=== PATIENT | male | born 1945 | race African-American/Black ===

== ENCOUNTER 2017-03-08 14:28 | Outpatient (CLI) | payer MEDICARE ==
--- NOTE | 2017-03-08 15:25 | XRay Report ---
CHEST 2 VIEWS INDICATION: End-stage renal disease. COMPARISON: 12/02/2011 CXR report; images not retrievable at this time. FINDINGS: PA and lateral chest radiographs demonstrate mild cardiomegaly. Extensive aortic atherosclerotic calcifications. Clear lungs. Right AICD with dual-chamber leads. Demineralized bones. CONCLUSION: Cardiomegaly and pacemaker without acute chest process, as described. Thank you for the opportunity to participate in this patient's care.
== END 2017-03-08 14:29 | disposition home or self-care (01) ==
LOC: XRAY 14:28
DX: I51.7 Cardiomegaly (principal); Z95.0 Presence of cardiac pacemaker; I25.10 Atherosclerotic heart disease of native coronary artery without angina pectoris; N18.6 End stage renal disease; I48.91 Unspecified atrial fibrillation
CPT/HCPCS: 71020

== ENCOUNTER 2017-04-01 10:50 | Inpatient (IN) | payer MEDICARE ==
[2017-04-01 12:37] LABS: Basophils % (Auto) 1.3 % (0.0-1.8); Eosinophils % (Auto) 13.5 % (0.0-4.3); Hematocrit 37.4 % (35.5-45.6); Hemoglobin 12.3 gm/dl (11.8-15.2); Mean Corpuscular HGB Conc 33 % (32-34); Mean Corpuscular Hemoglobin 33 pg (28-32); Mean Corpuscular Volume 101 fl (84-94); Platelet Count 135 K/mm3 (140-440); Red Blood Count 3.69 M/mm3 (3.65-5.03); Red Cell Distribution Width 13.9 % (13.2-15.2); White Blood Count 5.7 K/mm3 (4.5-11.0)
[2017-04-01 12:46] LABS: INR 0.95 (0.87-1.13)
[2017-04-01 12:47] LABS: Partial Thromboplastin Time 32.8 Sec. (24.2-36.6)
[2017-04-01 12:53] LABS: Albumin 3.9 g/dL (3.9-5); BUN/Creatinine Ratio 4.81; Bilirubin,Total 0.4 mg/dL (0.1-1.2); Calcium 8.4 mg/dL (8.4-10.2); Chloride 97.5 mmol/L (98-107); Potassium 4.3 mmol/L (3.6-5.0); Total Protein 7.8 g/dL (6.3-8.2)
--- NOTE | 2017-04-01 14:31 | Emergency Department Report ---
ED Upper Extremity Inj HPI - General Chief Complaint: Extremity Injury, Upper Stated Complaint: FISTULA PROBLEM/BLEEDING Time Seen by Provider: 04/01/17 14:21 Source: patient, family Mode of arrival: Ambulatory Limitations: Language Barrier - History of Present Illness Initial Comments: 71-year-old male here with a bleeding dialysis access. Patient had pulsatile flow from his dialysis access at home according to family. He went to dialysis and was immediately sent here from dialysis as they were unable to stop the bleeding according to dialysis. On arrival here there is no active bleeding from the site there is a small ulcer on his left upper arm. He denies lightheadedness dizziness Complaint: Injury to:: left -: Sudden Other Extremity Injury: Arm: Left Other Injuries: none Improves With: none Worsens With: none Associated Symptoms: denies: weakness, numbness, neck pain, suspects foreign body, nausea/vomiting - Related Data Home Medications Medication Instructions Recorded Confirmed Last Taken Atorvastatin Calcium [Lipitor] 20 mg PO QHS 06/13/13 12/10/15 12/09/15 20mg Calcium Acetate 667 mg PO TIDAC 06/13/13 12/10/15 12/09/15 667mg Carvedilol 3.125 mg PO BID 06/13/13 12/10/15 12/09/15 3.125mg Esomeprazole Magnesium [NexIUM] 40 mg PO DAILY 06/13/13 12/10/15 12/09/15 40mg Sevelamer Carbonate [Renvela] 800 mg PO BID 06/13/13 12/10/15 12/09/15 800mg Terazosin [Hytrin] 10 mg PO QHS 06/13/13 12/10/15 12/09/15 10mg Vit B Cplx #11/FA/C/Biot/Zn Ox 1 each PO DAILY 06/13/13 12/10/15 12/09/15 [Dialyvite with Zinc Tablet] 1 tab Sodium Polystyrene Sulfonate [Sps] 15 ml PO 4XW 12/10/15 12/10/15 12/09/15 15ml Allergies Allergy/AdvReac Type Severity Reaction Status Date / Time cefazolin sodium [From Ancef] AdvReac Severe Shortness Unverified 12/10/15 19:52 of Breath ED Review of Systems ROS: Stated complaint: FISTULA PROBLEM/BLEEDING Other details as noted in HPI Constitutional: denies: chills, fever, malaise Eyes: denies: eye pain Respiratory: denies: cough, orthopnea Cardiovascular: denies: chest pain, palpitations Gastrointestinal: denies: abdominal pain, nausea Musculoskeletal: denies: back pain Neurological: denies: headache, weakness ED Past Medical Hx - Past Medical History Previous Medical History?: Yes Hx Hypertension: Yes Hx Renal Disease: Yes - Surgical History Past Surgical History?: Yes Hx Pacemaker: Yes Hx Internal Defibrillator: Yes - Social History Smoking Status: Never Smoker Substance Use Type: None - Medications Home Medications: Home Medications Medication Instructions Recorded Confirmed Last Taken Type Atorvastatin Calcium [Lipitor] 20 mg PO QHS 06/13/13 12/10/15 12/09/15 History 20mg Calcium Acetate 667 mg PO TIDAC 06/13/13 12/10/15 12/09/15 History 667mg Carvedilol 3.125 mg PO BID 06/13/13 12/10/15 12/09/15 History 3.125mg Esomeprazole Magnesium [NexIUM] 40 mg PO DAILY 06/13/13 12/10/15 12/09/15 History 40mg Sevelamer Carbonate [Renvela] 800 mg PO BID 06/13/13 12/10/15 12/09/15 History 800mg Terazosin [Hytrin] 10 mg PO QHS 06/13/13 12/10/15 12/09/15 History 10mg Vit B Cplx #11/FA/C/Biot/Zn Ox 1 each PO DAILY 06/13/13 12/10/15 12/09/15 History [Dialyvite with Zinc Tablet] 1 tab Sodium Polystyrene Sulfonate [Sps] 15 ml PO 4XW 12/10/15 12/10/15 12/09/15 History 15ml ED Physical Exam - General Limitations: Language Barrier - Eye Eye exam: Present: normal appearance. Absent: PERRL, EOMI - Respiratory Respiratory exam: Present: normal lung sounds bilaterally. Absent: respiratory distress - Cardiovascular Cardiovascular Exam: Present: regular rate, normal rhythm - GI/Abdominal GI/Abdominal exam: Present: soft - Expanded Upper Extremity Exam Left Upper Arm exam: Present: other (palpable thrill in left fistula, small half millimeter ulcer in the arm no active bleeding) Vascular: Absent: vascular compromise ED Course Vital Signs 04/01/17 04/01/17 04/01/17 11:56 14:10 14:20 Temperature 98.7 F Pulse Rate 80 Respiratory 18 Rate Blood Pressure 156/90 171/87 O2 Sat by Pulse 100 Oximetry ED Medical Decision Making - Lab Data Result diagrams: 04/01/17 12:10 04/01/17 12:10 Laboratory Results - last 24 hr 04/01/17 04/01/17 04/01/17 12:10 12:10 12:10 WBC 5.7 RBC 3.69 Hgb 12.3 Hct 37.4 MCV 101 H MCH 33 H MCHC 33 RDW 13.9 Plt Count 135 L Lymph % (Auto) 18.4 [place] % (Auto) 8.5 H Eos % (Auto) 13.5 H Baso % (Auto) 1.3 Lymph # 1.0 L [place] # 0.5 Eos # 0.8 H Baso # 0.1 Seg Neutrophils % 58.3 Seg Neutrophils # 3.3 PT 13.1 INR 0.95 APTT 32.8 Sodium 141 Potassium 4.3 Chloride 97.5 L Carbon Dioxide 28 Anion Gap 20 BUN 39 H Creatinine 8.1 H Estimated GFR 7 BUN/Creatinine Ratio 4.81 Glucose 83 Calcium 8.4 Total Bilirubin 0.40 AST 23 ALT 14 Alkaline Phosphatase 121 Total Protein 7.8 Albumin 3.9 Albumin/Globulin Ratio 1.0 Blood Type Antibody Screen JOSE ALFREDO Antibody Screen 04/01/17 12:10 WBC RBC Hgb Hct MCV MCH MCHC RDW Plt Count Lymph % (Auto) [place] % (Auto) Eos % (Auto) Baso % (Auto) Lymph # [place] # Eos # Baso # Seg Neutrophils % Seg Neutrophils # PT INR APTT Sodium Potassium Chloride Carbon Dioxide Anion Gap BUN Creatinine Estimated GFR BUN/Creatinine Ratio Glucose Calcium Total Bilirubin AST ALT Alkaline Phosphatase Total Protein Albumin Albumin/Globulin Ratio Blood Type O POSITIVE Antibody Screen TNR JOSE ALFREDO Antibody Screen Negative - Medical Decision Making 71-year-old male with a bleeding dialysis access here for evaluation. Vascular surgery present on my evaluation and plan state patient for a fistulogram. After this the patient will be admitted to the hospital service for dialysis as he has not had his dialysis. No hyperkalemia or evidence of volume overload. Portions of this chart were dictated with dictation software. There may be dictation errors contained within this note. Critical care attestation.: If time is entered above; I have spent that time in minutes in the direct care of this critically ill patient, excluding procedure time. ED Disposition Clinical Impression: Dialysis AV fistula malfunction, Bleeding from dialysis shunt Disposition: OP ADMIT IP TO THIS HOSP Is pt being admited?: Yes Condition: Stable
--- NOTE | 2017-04-01 14:35 | History and Physical Report ---
History of Present Illness Chief complaint: Im bleeding History of present illness: 71 YO Male with ESRD on HD, HTN, Malnutrition presents to ED for evaluation. 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 As per patient, thru composer teaching artist- Pt went to dialysis today and was found to have uncontrolled bleeding from his AVF. Pt was sent from dialysis to [facility] ED for evaluation. Pt seen and evaluted in ED and found to have uncontrollable bleeding from his AV Fistula. IR consulted in ED and patient taken urgently to OR for fistulagram. Pt denies fever, chills, CP, Palpitations, NVD, Syncope, Vertigo, BRBPR, Productive cough, difficulty breathing, or recent ill contacts. Past History Past Medical History: ESRD, hypertension, other (Malnutrition) Past Surgical History: Other (AV Fistula) Social history: , lives with family. denies: smoking, alcohol abuse, prescription drug abuse, IV drug use Family history: hypertension Medications and Allergies Allergies Allergy/AdvReac Type Severity Reaction Status Date / Time cefazolin sodium [From Anc] AdvReac Severe Shortness Unverified 12/10/15 19:52 of Breath Home Medications Medication Instructions Recorded Confirmed Last Taken Type Atorvastatin Calcium [Lipitor] 20 mg PO QHS 06/13/13 12/10/15 12/09/15 History 20mg Calcium Acetate 667 mg PO TIDAC 06/13/13 12/10/15 12/09/15 History 667mg Carvedilol 3.125 mg PO BID 06/13/13 12/10/15 12/09/15 History 3.125mg Esomeprazole Magnesium [NexIUM] 40 mg PO DAILY 06/13/13 12/10/15 12/09/15 History 40mg Sevelamer Carbonate [Renvela] 800 mg PO BID 06/13/13 12/10/15 12/09/15 History 800mg Terazosin [Hytrin] 10 mg PO QHS 06/13/13 12/10/15 12/09/15 History 10mg Vit B Cplx #11/FA/C/Biot/Zn Ox 1 each PO DAILY 06/13/13 12/10/15 12/09/15 History [Dialyvite with Zinc Tablet] 1 tab Sodium Polystyrene Sulfonate [Sps] 15 ml PO 4XW 12/10/15 12/10/15 12/09/15 History 15ml Review of Systems All systems: negative Constitutional: other (bleeding) Exam - Constitutional Vitals: Temp Pulse Resp BP Pulse Ox 98.7 F 80 18 171/87 100 04/01/17 11:56 04/01/17 11:56 04/01/17 14:20 04/01/17 14:10 04/01/17 14:20 General appearance: Present: mild distress - EENT Eyes: Present: PERRL ENT: hearing intact, clear oral mucosa - Neck Neck: Present: supple, normal ROM - Respiratory Respiratory effort: normal Respiratory: bilateral: CTA - Cardiovascular Heart Sounds: Present: S1 & S2. Absent: rub, click - Extremities Extremities: pulses symmetrical, No edema Extremity abnormal: other (bleeding from RUE AVF) Peripheral Pulses: within normal limits - Abdominal General gastrointestinal: Present: soft, non-tender, non-distended, normal bowel sounds Male genitourinary: Present: normal - Integumentary Integumentary: Present: clear, warm, dry - Musculoskeletal Musculoskeletal: gait normal, strength equal bilaterally - Psychiatric Psychiatric: appropriate mood/affect, intact judgment & insight - Neurologic Neurologic: CNII-XII intact, moves all extremities Results - Labs CBC & Chem 7: 04/01/17 12:10 04/01/17 12:10 Labs: Abnormal lab results 04/01/17 04/01/17 Range/Units 12:10 12:10 MCV 101 H (84-94) fl MCH 33 H (28-32) pg Plt Count 135 L (140-440) K/mm3 [place] % (Auto) 8.5 H (0.0-7.3) % Eos % (Auto) 13.5 H (0.0-4.3) % Lymph # 1.0 L (1.2-5.4) K/mm3 Eos # 0.8 H (0.0-0.4) K/mm3 Chloride 97.5 L (98-107) mmol/L BUN 39 H (9-20) mg/dL Creatinine 8.1 H (0.8-1.5) mg/dL Assessment and Plan - Patient Problems (1) ESRD (end stage renal disease) Current Visit: No Status: Chronic Plan to address problem: Nephrology consulted in ED, dialysis as per renal service (2) Hypotension Current Visit: No Status: Acute Qualifiers: Hypotension type: H Trimester: T Plan to address problem: monitor bp q shift, (3) Paroxysmal atrial fibrillation Current Visit: No Status: Acute Plan to address problem: Rate controlled, NSR (4) Dialysis AV fistula malfunction Current Visit: Yes Status: Acute Qualifiers: Encounter type: E Plan to address problem: IR/Vascular consulted. Pt taken to OR urgently for fistulagram. (5) DVT prophylaxis Current Visit: Yes Status: Acute
[2017-04-01] MEDS ORDERED: DUONEB *Not for PRN Use IH (14:36)
[2017-04-01] MEDS ORDERED: TYLENOL PO PRN (14:36)
--- NOTE | 2017-04-01 14:39 | Admit Criteria Form ---
Admission Criteria Documentation: VASCULAR DISEASE GRG Clinical Indications for Admission to Inpatient Care (Place 'X' for any and all applicable criteria): Hospital admission is needed for appropriate care of the patient because of ANY ONE of the following (1)(2)(3)(4): [ ]I. Life-threatening or limb-threatening skin ulcer as indicated by ANY ONE of the following(5): [ ]a) Surrounding cellulitis unresponsive to outpatient treatment [ ]b) Wet gangrene [ ]c) Lymphangitis [ ]d) Bacteremia [ ]II. Gangrene requiring intensity and frequency of care not manageable to outpatient, emergency, or observation level of care(5) [ ]III. Severe pain requiring acute inpatient management [ ]IV. Interventional revascularization (eg, surgery, thrombolysis) needed (eg , critical limb ischemia)(21) [ ]V. Urgent inpatient IV anticoagulation needed due to ALL of the following: [ ]a) Temporary subtherapeutic anticoagulation unacceptable because of high risk of short-term venous or arterial thromboembolism due to ANY ONE of the following(7)(8)(9): [ ]i) Venous thromboembolism within the past 12 months [ ]ii) Underlying malignancy [ ]iii) Patient with mechanical cardiac valve(10)(11) [ ]iv) Underlying hypercoagulable state (eg, protein C or protein S deficiency, antithrombin deficiency, antiphospholipid antibodies) [ ]v) Patient at high risk of thromboembolism (eg, status post orthopedic surgery, history of recurrent venous thromboembolism) [ ]vi) Atrial fibrillation with rheumatic valvular heart disease [ ]vii) Atrial fibrillation with 3 or MORE of the following : [ ]1) Congestive heart failure [ ]2) Hypertension [ ]3) Age 65 years or older [ ]4) Diabetes mellitus [ ]5) History of thromboembolism (eg, stroke, TIA , or systemic embolization) more than 3 months ago [ ]6) Female gender [ ]b) Contraindications to outpatient use of "bridging" agent or alternative oral anticoagulant as indicated by ALL of the following: [ ]i) Contraindication to outpatient use of low-molecular -weight heparin as "bridging" agent as indicated by ANY ONE of the following(8) : [ ]1) Documented current or history of heparin- induced thrombocytopenia(12) [ ]2) Severe thrombocytopenia (eg, platelet count less than 50,000/mm3 (50 x109/L)) [ ]3) Documented allergy to heparin, low- molecular-weight heparin, or pork products [ ]4) Renal failure (creatinine clearance < 30 mL /min/1.73m2 (0.50 mL/sec/1.73m2) or on dialysis) [ ]5) Inability to manage self-injection (eg, by patient, caregiver, or visiting nurse) [ ]ii) Contraindication to outpatient use of fondaparinux as "bridging" agent as indicated by ANY ONE of the following(13)(14)(15)(16): [ ]1) Severe thrombocytopenia (eg, platelet count less than 50,000/mm3 (50 x109/L)) [ ]2) Hypersensitivity to fondaparinux, related drugs, or product components [ ]3) Renal failure (creatinine clearance less than 30 mL/min/1.73m2 (0.50 mL/sec/1.73m2) or on dialysis) [ ]4) Inability to manage self-injection (eg, by patient, caregiver, or visiting nurse) [ ]iii) Oral direct thrombin inhibitor (eg, dabigatran) or oral coagulation factor Xa inhibitor (eg, rivaroxaban) not appropriate as oral anticoagulation (eg, indication not appropriate) or contraindicated (eg, hypersensitivity, renal failure)(13)(16)(17)(18)(19)(20) [ ]. Suspected severe acute ischemia due to peripheral vascular disease as indicated by ANY ONE of the following(5)(6): [ ]a) Tissue necrosis [ ]b) Severe pain [ ]c) Acute pulselessness [ ]d) Other evidence of acute severe ischemia (eg, lactic acidosis , motor dysfunction) [ ]VII. Acute or newly diagnosed major vessel (eg, aorta) dissection, rupture, or leakage(5)(6)(22)(23) [X ]VIII.Vascular Disease and ALL of the following: [X ]a) Symptom or finding for which emergency and observation care have failed or are not considered appropriate (Use General Criteria: Observation Care as appropriate) [X ]b) Presence of ANY ONE of the following: [X ]i) A General Admission Criteria [ ]ii) A Pediatric General Admission Criteria The original [facility] content created by [employer] [facility] has been revised. The portions of the content which have been revised are identified through the use of italic text or in bold, and [facility] has neither reviewed nor approved the modified material. All other unmodified content is copyright [facility]. Please see references footnoted in the original [facility] edition 2016 Admission Criteria Met: Yes
--- NOTE | 2017-04-01 14:43 | Consultation ---
History of Present Illness - Reason for Consult Consult date: 04/01/17 LUE fistula bleeding - History of Present Illness 71-year-old male with end-stage renal disease who, on evaluation, appears to have a brachiocephalic AV fistula as I cannot identify an axillary incision, but appears on history to possibly have a left sided AV graft placed in 2010. The patient was brought to the emergency room for prolonged bleeding during dialysis. He did not have his dialysis session completed. On physical examination, the patient can move his hand without issue, has no neuropathy of his left hand, and has no pain in his left hand. The left upper extremity AV access was evaluated and there is a tiny 3 mm x 3 mm area of excoriated skin next to the most recent dialysis access puncture. The area is not tender right now. Past History Past Medical History: atrial fib, CAD (I'll have), ESRD, hypertension ([place]'s need for hand and right) Past Surgical History: PTCA, Other (pacemaker) Social history: lives with family. denies: smoking, alcohol abuse Family history: no significant family history Medications and Allergies Allergies Allergy/AdvReac Type Severity Reaction Status Date / Time cefazolin sodium [From Ancef] AdvReac Severe Shortness Unverified 12/10/15 19:52 of Breath Home Medications Medication Instructions Recorded Confirmed Last Taken Type Atorvastatin Calcium [Lipitor] 20 mg PO QHS 06/13/13 12/10/15 12/09/15 History 20mg Calcium Acetate 667 mg PO TIDAC 06/13/13 12/10/15 12/09/15 History 667mg Carvedilol 3.125 mg PO BID 06/13/13 12/10/15 12/09/15 History 3.125mg Esomeprazole Magnesium [NexIUM] 40 mg PO DAILY 06/13/13 12/10/15 12/09/15 History 40mg Sevelamer Carbonate [Renvela] 800 mg PO BID 06/13/13 12/10/15 12/09/15 History 800mg Terazosin [Hytrin] 10 mg PO QHS 06/13/13 12/10/15 12/09/15 History 10mg Vit B Cplx #11/FA/C/Biot/Zn Ox 1 each PO DAILY 06/13/13 12/10/15 12/09/15 History [Dialyvite with Zinc Tablet] 1 tab Sodium Polystyrene Sulfonate [Sps] 15 ml PO 4XW 12/10/15 12/10/15 12/09/15 History 15ml Active Meds: Active Medications Acetaminophen (Tylenol) 650 mg PO Q4H PRN PRN Reason: Pain MILD(1-3)/Fever >100.5/JEAN Albuterol/Ipratropium (Duoneb 0.5 Mg-3 Mg/3 Ml Soln) 1 ampul IH Q6HRT PRN PRN Reason: Wheezing Review of Systems All systems: negative (see HPI ; son provided translation) Exam - Constitutional Vitals: Temp Pulse Resp BP Pulse Ox 98.7 F 80 18 171/87 100 04/01/17 11:56 04/01/17 11:56 04/01/17 14:20 04/01/17 14:10 04/01/17 14:20 General appearance: Present: no acute distress - EENT Eyes: Present: EOM intact ENT: hearing intact - Respiratory Respiratory effort: normal - Extremities Extremities: normal temperature, normal color, abnormal (see HPI) - Psychiatric Psychiatric: appropriate mood/affect, cooperative, other (son provided translation) Results - Labs CBC & Chem 7: 04/01/17 12:10 04/01/17 12:10 Labs: Abnormal lab results 04/01/17 04/01/17 Range/Units 12:10 12:10 MCV 101 H (84-94) fl MCH 33 H (28-32) pg Plt Count 135 L (140-440) K/mm3 [place] % (Auto) 8.5 H (0.0-7.3) % Eos % (Auto) 13.5 H (0.0-4.3) % Lymph # 1.0 L (1.2-5.4) K/mm3 Eos # 0.8 H (0.0-0.4) K/mm3 Chloride 97.5 L (98-107) mmol/L BUN 39 H (9-20) mg/dL Creatinine 8.1 H (0.8-1.5) mg/dL Assessment and Plan 71-year-old male with left upper extremity AV fistula malfunction with prolonged bleeding. There is a tiny 3 x 3 mm area of excoriation. Recommend Betadine application twice a day until completely healed. Patient will be brought for fistulogram and angioplasty, possible stenting, for probable outflow stenosis. After intervention, if patient can tolerate dialysis without further issues, then vascular will sign off.
[2017-04-01] MEDS ORDERED: HEPARIN/NS 5000 UNIT/500ML(CATH LAB) 1,000 ML IR ONE (14:47)
[2017-04-01] MEDS ORDERED: XYLOCAINE 2% INFILTRATI ONE (14:47)
[2017-04-01] MEDS ORDERED: HEPARIN 10,000 UNITS/10 ML ONE (14:47)
[2017-04-01] MEDS ORDERED: SUBLIMAZE ONE (14:47)
[2017-04-01] MEDS ORDERED: VERSED ONE (14:47)
[2017-04-01] MEDS ORDERED: VANCOMYCIN/NS 1 GM/250 ML 1 GM/250 ML BAG IV ONE (14:47)
--- NOTE | 2017-04-01 14:54 | Operative Report ---
Operative Report Operative Report: EXAM: 1. Ultrasound guided access of the left arm AV access towards the venous outflow 2. Fluoroscopic guided placement of a 7 Fr sheath 3. Fistulogram 4. Angioplasty of the left subclavian vein, left axillary vein and AVG with an 8 mm angioplasty balloon 5. Angioplasty of the left subclavian vein and left axillary vein and AVG with an 10 mm angioplasty balloon 6. Angioplasty of the left subclavian vein with a 12 mm angioplasty balloon 6. Ultrasound guided access of the left arm AV access towards the arterial anastamosis 7. Fluoroscopic guided placement of a 6 Fr sheath 8. Brachial artery selection and angiography 9. Angioplasty of the arterial anstamosis with a 6 mm angioplasty balloon 10. Angioplasty of the perianastamotic portion of the AVG with a 6 mm angioplasty balloon DATE: 04/01/17 SOLAR PANEL INSTALLER: CARMELITA VENTURA MD INDICATION: 70-year-old male with end-stage renal disease and AV graft malfunction with recent ultrasound demonstrating pseudoaneurysm likely secondary to dialysis access issue. Patient also has a large left arm hematoma. MEDICATIONS: Please see nursing report for full details. DEVICES: 12 mm angioplasty balloon 10 mm angioplasty balloon 8 mm angioplasty balloon 6 mm angioplasty balloon PROCEDURE: The risks, benefits, and alternatives of the procedure were discussed and written informed consent was obtained. The patient was transported in stable condition to the angiography suite. The patient's left arm AV access was assessed by ultrasound and was patent. The patient was prepped and draped in a sterile fashion. Under ultrasound guidance, the left arm AV access was accessed with a 21-gauge micropuncture needle towards the venous outflow. The area was anesthetized prior to access. 0.018 inch wire was advanced through the micropuncture needle into the fistula and then the needle was exchanged for a 5 Czech transitional dilator. The inner dilator and wire were removed and a 0.035 inch wire was advanced through the venous outflow. The transitional dilator was exchanged for a 6 Czech short sheath. Fistulogram was performed of the venous outflow and central veins. Reflux into the arterial anastomosis was performed. Digital subtraction angiography demonstrated mild narrowing of the arterial anastomosis, severe narrowing of the perianastomotic portion of the graft with moderate dilatation of the peripheral to mid portion of the graft with moderate narrowing of the distal portion of the graft and peripheral axillary vein and severe narrowing of the left subclavian vein with patency of the left brachiocephalic and SVC. 8 mm angioplasty balloon was then used to perform angioplasty from the left subclavian vein and left axillary vein and distal AV graft. Digital subtraction angiography post-performed demonstrating mild to moderate residual narrowing of the left axillary vein and distal AV graft with moderate to severe residual narrowing of the left subclavian vein. 10 mm angioplasty balloon was then used to perform angioplasty of the left subclavian vein, and peripheral axillary vein. Digital subtraction angiography was repeated demonstrating moderate residual narrowing at the subclavian vein interface, and only mild residual narrowing of the distal portion of the graft and axillary vein. Sheath was upsized to a 7 Czech sheath. 12 mm angioplasty below was then advanced over the widest perform angioplasty of the left subclavian vein. Digital subtraction angiography demonstrated minimal residual narrowing of the left subclavian vein. In order to treat the anastomosis and perianastomotic portion of the AV access, I decided to obtain a new access. I performed ultrasound guided access of the left arm AV graft towards the arterial anastomosis. Under ultrasound guidance, the left arm AV graft was accessed with a 21-gauge micropuncture needle towards the arterial anastomosis. The area was anesthetized prior to access. 0.018 inch wire was advanced through the micropuncture needle into the fistula and then the needle was exchanged for a 5 Czech transitional dilator. The inner dilator and wire were removed and a 0.035 inch wire was advanced through the arterial anastamosis. The transitional dilator was exchanged for a 6 Czech short sheath. Vertebral catheter was advanced over the wire and was used to retrograde cannulate the proximal portion of the brachial artery with the Glidewire. Wire was removed and digital subtraction angiography was performed demonstrating mild to moderate narrowing of the arterial anastomosis severe narrowing of the perianastomotic portion of the graft. The brachial artery proximal to the graft was patent. The brachial artery distal to the graft was patent although slightly irregular in morphology. 6 mm angioplasty balloon was advanced over the wire and used to perform angioplasty of the arterial anastomosis. Anastomotic portion of the graft. Balloon was exchanged for an angled catheter which was used to select the left brachial artery. Digital subtraction angiography was performed demonstrating minimal residual narrowing of the anastomosis and perianastomotic portion of the graft. Each of the wires were removed and each site was closed with a 3-0 Vicryl suture. The sheath was then removed. Hemostasis was achieved with slight manual compression. Of note, during the procedure, the old dialysis access started bleeding and required suturing with a 4-0 Vicryl suture. The patient was transported from the angiography suite to the floor in stable condition. IMPRESSION: Successful fistulogram and arterial anastomosis, AV graft, axillary vein, and subclavian vein angioplasty. Initial fistulogram demonstrates multifocal areas of moderate and severe narrowing. Final fistulogram demonstrates minimal residual narrowing except for the axillary vein which has mild residual narrowing.
[2017-04-01] MEDS ORDERED: KIONEX PO SCH (15:00)
[2017-04-01] MEDS ORDERED: PROVENTIL IH PRN (15:05)
[2017-04-01] MEDS ORDERED: DDAVP 20 MCG in NACL 0.9% 50 ML IV ONE (16:20)
[2017-04-01] MEDS: PHOSLO PO SCH (18:30)
[2017-04-01] MEDS: BETADINE TP SCH ×2 (20:58→21:53)
[2017-04-01] MEDS: RENVELA PO SCH (21:50)
[2017-04-01] MEDS: COREG PO SCH (21:51)
[2017-04-01] MEDS: MINIPRESS PO SCH (21:56)
[2017-04-01] MEDS ORDERED: NON-FORMULARY (Terazosin 10 MG) PO SCH (22:00)
[2017-04-02] MEDS: PHOSLO PO SCH ×3 (08:25→16:11)
[2017-04-02] MEDS: Renal Caps PO SCH (09:24)
[2017-04-02] MEDS: PROTONIX PO SCH (09:24)
[2017-04-02] MEDS: BETADINE TP SCH ×2 (09:24→22:20)
[2017-04-02] MEDS: RENVELA PO SCH ×2 (09:25→22:19)
[2017-04-02] MEDS ORDERED: NON-FORMULARY (Vit B Cplx #11/Fa/C/Biot/Zn Ox [Dialyvite With Zinc Tablet] 1 EACH) PO SCH (10:00)
[2017-04-02] MEDS ORDERED: NON-FORMULARY (Esomeprazole Magnesium [Nexium] 40 MG) PO SCH (10:00)
[2017-04-02] MEDS ORDERED: NACL 0.9% 100 ML IV PRN (12:47)
--- NOTE | 2017-04-02 12:48 | Consultation ---
History of Present Illness - History of Present Illness Thank you for the consultation Patient was evaluated today assessment and plan End-stage renal disease currently in maintenance in a dialysis patient will receive his hemodialysis treatment today Outpatient dialysis days are currently on Tuesday and Tuesday Admitted with bleeding from the fistula site currently post fistulogram doing well Anemia and end-stage renal disease to monitor some blood loss noted Secondary hyperparathyroidism to monitor periodically at the dialysis clinic Hypertension goal systolic blood pressure under 140 Adequately counseled and educated History of presenting illness: Patient is a pleasant 70-year-old [place] male who was brought in due to bleeding from his fistula. Patient immediately went for fistulogram and currently is doing well bleeding has stopped. he does not have any complaints of dizziness lightheadedness and feels quite well.he came in due to uncontrolled bleeding from the fistula site, and was seen by vascular surgery. Upon arrival his hemoglobin was 12.3 patient did not complain of any dizziness upon standing He has no complaints of any chest pain pressure or shortness of breath was significantly he can go for dialysis today his normal dialysis days are Tuesday and Tuesday Patient has no complaints of any chest pain pressure or shortness of breath his appetite is good no nausea vomiting fever or chills Past medical history is significant for: end-stage renal disease currently on maintenance hemodialysis History of hyperkalemia currently doing well Anemia and end-stage renal disease Secondary hyperparathyroidism Current allergies: Ancef Home medication present medications: Reviewed Social history:no history of any recent alcohol drug tobacco abuse Family history:reviewed from the current chart Review of system positive forbleeding from the fistula site otherwise essentially negative for all the other system Physical examination Vitals: Reviewed from this admission General: No acute distress HEENT: Oral mucosa moist no uremic order mild pallor no icterus Neck: No thyromegaly nodular mass or JVD noted Chest: Clear to auscultation no rales or wheezes Heart: Regular rhythm S1-S2 heard no S3-S4 Abdomen: Nontender no organomegaly no masses no renal bruit no suprapubic masses noted Extremities: Mild edema No peripheral cyanosis dry skin pulses palpable , fistula appears to have good thrill and bruit Endocrine: No thyromegaly noted Psych; no agitation or aggression noted Back: Nontender thoracolumbar spine Musculoskeletal: No joint effusion noted Neurological: Alert awake follows commands higher function including speech memory thought cognition within normal limits pertinent labs and x-rays: All were reviewed from this admission on chart today Past History Past Medical History: ESRD, hypertension, other (Malnutrition) Past Surgical History: Other (AV Fistula) Social history: , lives with family. denies: smoking, alcohol abuse, prescription drug abuse, IV drug use Family history: hypertension Medications and Allergies Allergies Allergy/AdvReac Type Severity Reaction Status Date / Time cefazolin sodium [From Anc] AdvReac Severe Shortness Unverified 12/10/15 19:52 of Breath Home Medications Medication Instructions Recorded Confirmed Last Taken Type Atorvastatin Calcium [Lipitor] 20 mg PO QHS 06/13/13 12/10/15 12/09/15 History 20mg Calcium Acetate 667 mg PO TIDAC 06/13/13 12/10/15 12/09/15 History 667mg Carvedilol 3.125 mg PO BID 06/13/13 12/10/15 12/09/15 History 3.125mg Esomeprazole Magnesium [NexIUM] 40 mg PO DAILY 06/13/13 12/10/15 12/09/15 History 40mg Sevelamer Carbonate [Renvela] 800 mg PO BID 06/13/13 12/10/15 12/09/15 History 800mg Terazosin [Hytrin] 10 mg PO QHS 06/13/13 12/10/15 12/09/15 History 10mg Vit B Cplx #11/FA/C/Biot/Zn Ox 1 each PO DAILY 06/13/13 12/10/15 12/09/15 History [Dialyvite with Zinc Tablet] 1 tab Sodium Polystyrene Sulfonate [Sps] 15 ml PO 4XW 12/10/15 12/10/15 12/09/15 History 15ml Active Meds: Active Medications Acetaminophen (Tylenol) 650 mg PO Q4H PRN PRN Reason: Pain MILD(1-3)/Fever >100.5/JEAN Albuterol (Proventil) 2.5 mg IH Q4HRT PRN PRN Reason: Shortness Of Breath Atorvastatin Calcium (Lipitor) 20 mg PO QHS [facility] Last Admin: 04/01/17 21:51 Dose: 20 mg Calcium Acetate (Phoslo) 667 mg PO TIDAC [facility] Last Admin: 04/02/17 08:25 Dose: 667 mg Carvedilol (Coreg) 3.125 mg PO BID [facility] Last Admin: 04/01/17 21:51 Dose: 3.125 mg Multivit/Ca Carb/B Cmplx/FA/Prenat (Renal Caps) 1 cap PO QDAY [facility] Last Admin: 04/02/17 09:24 Dose: 1 cap Pantoprazole Sodium (Protonix) 40 mg PO DAILY [facility] Last Admin: 04/02/17 09:24 Dose: 40 mg Povidone Iodine (Betadine) 1 applic TP BID [facility] Last Admin: 04/02/17 09:24 Dose: 1 applic Prazosin HCl (Minipress) 5 mg PO BID [facility] Last Admin: 04/01/17 21:56 Dose: 5 mg Sevelamer Carbonate (Renvela) 800 mg PO BID [facility] Last Admin: 04/02/17 09:25 Dose: 800 mg Sodium Polystyrene Sulfonate (Kionex) gm PO 4XW [facility] Exam - Vital Signs Vital signs: Vital Signs Temp Pulse BP 98.7 F 80 156/90 04/01/17 11:56 04/01/17 11:56 04/01/17 11:56 Results - Lab Results 04/03/17 07:06 04/03/17 07:06 Most recent lab results Calcium 8.4 mg/dL (8.4-10.2) 04/01/17 12:10
[2017-04-02] MEDS: MINIPRESS PO SCH ×2 (13:19→22:18)
[2017-04-02] MEDS: COREG PO SCH ×2 (13:20→22:19)
--- NOTE | 2017-04-02 18:39 | Progress Note ---
Assessment and Plan (1) Dialysis AV fistula malfunction Current Visit: Yes Status: Acute Qualifiers: Encounter type: E Plan to address problem: IR/Vascular consulted. Pt taken to OR urgently for fistulagram. and angioplasty. (2) ESRD (end stage renal disease) Current Visit: No Status: Chronic Plan to address problem: Nephrology consulted in ED, dialysis as per renal service (3) Hypotension Current Visit: No Status: Acute Qualifiers: Hypotension type: H Trimester: T Plan to address problem: monitor bp q shift, (4) Paroxysmal atrial fibrillation Current Visit: No Status: Acute Plan to address problem: Rate controlled, NSR (5) DVT prophylaxis Current Visit: Yes Status: Acute Subjective Date of service: 04/02/17 Principal diagnosis: AV fistula malfunction Interval history: S/p Angioplasty of AV access on L side =doing well. Objective - Exam Narrative Exam: Comfortable - Constitutional Vitals: Vital Signs - 12hr 04/02/17 04/02/17 04/02/17 07:00 09:14 16:00 Temperature 98.0 F 97.8 F Pulse Rate 63 Pulse Rate [ 66 Apical] Pulse Rate [ 66 Right Radial] Respiratory 20 16 Rate Blood Pressure 152/84 Blood Pressure 122/60 [Right Arm] O2 Sat by Pulse 95 95 Oximetry 04/02/17 04/02/17 04/02/17 16:15 16:30 16:45 Temperature Pulse Rate 75 75 86 Pulse Rate [ Apical] Pulse Rate [ Right Radial] Respiratory Rate Blood Pressure 150/86 145/80 153/82 Blood Pressure [Right Arm] O2 Sat by Pulse Oximetry 04/02/17 04/02/17 04/02/17 17:00 17:15 17:30 Temperature Pulse Rate 71 73 61 Pulse Rate [ Apical] Pulse Rate [ Right Radial] Respiratory Rate Blood Pressure 120/79 138/62 133/83 Blood Pressure [Right Arm] O2 Sat by Pulse Oximetry 04/02/17 04/02/17 04/02/17 17:45 18:00 18:15 Temperature Pulse Rate 71 58 L 55 L Pulse Rate [ Apical] Pulse Rate [ Right Radial] Respiratory Rate Blood Pressure 145/73 124/74 128/70 Blood Pressure [Right Arm] O2 Sat by Pulse Oximetry General appearance: Present: no acute distress, well-nourished - EENT Eyes: PERRL, EOM intact ENT: hearing intact, clear oral mucosa Ears: bilateral: normal - Neck Neck: supple, normal ROM - Respiratory Respiratory effort: normal Respiratory: bilateral: CTA - Breasts Breasts: normal - Cardiovascular Heart rate: 70 Rhythm: regular Heart Sounds: Present: S1 & S2. Absent: gallop, rub Extremities: pulses intact, No edema, normal color, Full ROM - Gastrointestinal General gastrointestinal: Present: soft, non-tender, non-distended, normal bowel sounds - Genitourinary Male genitourinary: normal - Integumentary Integumentary: clear, warm, dry - Musculoskeletal Musculoskeletal: 1, strength equal bilaterally - Neurologic Neurologic: moves all extremities - Psychiatric Psychiatric: memory intact, appropriate mood/affect, intact judgment & insight - Labs CBC & Chem 7: 04/01/17 12:10 04/01/17 12:10 - Imaging and cardiology Chest x-ray: report reviewed
[2017-04-03 07:23] LABS: Basophils % (Auto) 1.1 % (0.0-1.8); Eosinophils % (Auto) 13.2 % (0.0-4.3); Hematocrit 37.5 % (35.5-45.6); Hemoglobin 12.7 gm/dl (11.8-15.2); Mean Corpuscular HGB Conc 34 % (32-34); Mean Corpuscular Hemoglobin 33 pg (28-32); Mean Corpuscular Volume 98 fl (84-94); Platelet Count 126 K/mm3 (140-440); Red Blood Count 3.83 M/mm3 (3.65-5.03); Red Cell Distribution Width 13.7 % (13.2-15.2); White Blood Count 6.6 K/mm3 (4.5-11.0)
[2017-04-03 07:40] LABS: BUN/Creatinine Ratio 4.06; Calcium 9.1 mg/dL (8.4-10.2); Chloride 95.9 mmol/L (98-107); Potassium 4.3 mmol/L (3.6-5.0)
[2017-04-03] MEDS: PHOSLO PO SCH ×3 (08:18→17:39)
[2017-04-03] MEDS: PROTONIX PO SCH (09:47)
[2017-04-03] MEDS: COREG PO SCH (09:47)
[2017-04-03] MEDS: RENVELA PO SCH (09:47)
[2017-04-03] MEDS: Renal Caps PO SCH (09:47)
[2017-04-03] MEDS: MINIPRESS PO SCH (09:47)
[2017-04-03] MEDS: BETADINE TP SCH (09:49)
--- NOTE | 2017-04-03 10:26 | Progress Note ---
Subjective Principal diagnosis: AV fistula malfunction Interval history: Patient was seen today for follow-up of multiple renal related issues his son is at bedside and he wants to go home Events of 24 hours vitals labs intake output medications were reviewed Interdisciplinary notes were also reviewed Past medical history; reviewed Family and social history: Reviewed Objective: Vitals: Reviewed HEENT: Oral mucosa moist no uremic order mild pallor no icterus Neck: Supple, no carotid bruit Heart: Regular rate and rhythm S1-S2 heard no S3 or S4 no pericardial rub Abdomen: Soft NT no suprapubic masses no CVA tenderness no renal bruit Extremity: Minimal edema dry skin no peripheral cyanosis fistula appears to be working well Dermatology: Dry skin Assessment and plan End-stage renal disease currently on maintenance hemodialysis Patient did receive his hemodialysis treatment yesterday he is feeling well wants to go home Access related issues / patient is currently status post fistulogram Bleeding has completely stopped Hypertension currently stable Overall doing well from a renal standpoint He can be considered for discharge to follow-up at the dialysis clinic on Tuesday schedule Objective - Vital Signs Vital signs: Vital Signs - 12hr 04/03/17 04/03/17 04/03/17 00:14 08:00 09:47 Temperature 98 F 98.0 F Pulse Rate [ 85 70 Apical] Pulse Rate [ 85 70 Right Radial] Respiratory 20 19 Rate Blood Pressure 117/75 Blood Pressure 122/57 117/75 [Right Arm] O2 Sat by Pulse 95 98 Oximetry - Lab 04/03/17 07:06 04/03/17 07:06 Most recent lab results Calcium 9.1 mg/dL (8.4-10.2) 04/03/17 07:06
--- NOTE | 2017-04-03 16:09 | Discharge Summary ---
Providers - Providers Date of Admission: 04/01/17 14:36 Date of discharge: 04/03/17 Attending physician: NATALY TURNER 04/02/17 12:44 Consult to Physician [CONS] Urgent Consulting Provider: LUZ MARIA SALDANA Reason For Exam: ESRD Place consult to:: muriel Notified:: yes Phone number called:: in person Was contact made?: Yes If yes, spoke with:: muriel Villegas Time called:: 12:45 04/02/17 13:16 Consult to Physician [CONS] Urgent Consulting Provider: LUZ MARIA SALDANA Reason For Exam: ESRD needing HD Place consult to:: Dr. Saldana Notified:: Dr. Saldana Was contact made?: Yes Comment:: Dr. Saldana saw the patient Primary care physician: [employer]PERATOR Hospitalization Condition: Stable Procedures: AV Fistula malfunction-corrected Hospital course: Assessment and Plan (1) Dialysis AV fistula malfunction Current Visit: Yes Status: Acute Qualifiers: Encounter type: E Plan to address problem: IR/Vascular consulted. Pt taken to OR urgently for fistulagram. (2) ESRD (end stage renal disease) Current Visit: No Status: Chronic Plan to address problem: Nephrology consulted in ED, dialysis as per renal service (3) Hypotension Current Visit: No Status: Acute Qualifiers: Hypotension type: H Trimester: T Plan to address problem: monitor bp q shift, Corrected (4) Paroxysmal atrial fibrillation Current Visit: No Status: Acute Plan to address problem: Rate controlled, NSR (5) DVT prophylaxis Current Visit: Yes Status: Acute Disposition: DC-01 TO HOME OR SELFCARE Core Measure Documentation - Palliative Care Palliative Care/ Comfort Measures: Not Applicable - Core Measures Any of the following diagnoses?: none Exam - Physical Exam Narrative exam: Comfortable - Constitutional Vitals: Temp Pulse Resp BP Pulse Ox 98.0 F 70 19 117/75 98 04/03/17 08:00 04/03/17 08:00 04/03/17 08:00 04/03/17 09:47 04/03/17 08:00 General appearance: Present: no acute distress, well-nourished - EENT Eyes: Present: PERRL ENT: hearing intact, clear oral mucosa - Neck Neck: Present: supple, normal ROM - Respiratory Respiratory effort: normal Respiratory: bilateral: CTA - Cardiovascular Heart Sounds: Present: S1 & S2. Absent: rub, click - Extremities Extremities: pulses symmetrical, No edema Peripheral Pulses: within normal limits - Abdominal General gastrointestinal: Present: soft, non-tender, non-distended, normal bowel sounds Male genitourinary: Present: normal - Integumentary Integumentary: Present: clear, warm, dry - Musculoskeletal Musculoskeletal: gait normal, strength equal bilaterally - Psychiatric Psychiatric: appropriate mood/affect, intact judgment & insight - Neurologic Neurologic: CNII-XII intact, moves all extremities Plan Activity: no restrictions Diet: renal Follow up with: PRIMARY CARE, [Primary Care Provider] - 3-5 Days
[2017-04-03 16:26] VITALS: BP 107/58
[2017-04-03] MEDS ORDERED: RENVELA PO SCH (17:00)
== END 2017-04-03 17:15 | disposition home or self-care (01) | DRG 252 ==
LOC: ED 10:50 → 3A 14:36
PROVIDERS: ADMIT Internal Medicine; ATTEND Internal Medicine
PROC: 05783ZZ Dilation of Left Axillary Vein, Percutaneous Approach (ICD-10-PCS; principal; 2017-04-01)
PROC: 05763ZZ Dilation of Left Subclavian Vein, Percutaneous Approach (ICD-10-PCS; 2017-04-01)
PROC: 03783ZZ Dilation of Left Brachial Artery, Percutaneous Approach (ICD-10-PCS; 2017-04-01)
PROC: B51W1ZZ Fluoroscopy of Dialysis Shunt/Fistula using Low Osmolar Contrast (ICD-10-PCS; 2017-04-01)
PROC: 5A1D00Z (ICD-10-PCS; 2017-04-02)
DX: T82.838A Hemorrhage due to vascular prosthetic devices, implants and grafts, initial encounter (principal); N18.6 End stage renal disease; I12.0 Hypertensive chronic kidney disease with stage 5 chronic kidney disease or end stage renal disease; E46 Unspecified protein-calorie malnutrition; N25.81 Secondary hyperparathyroidism of renal origin; I25.10 Atherosclerotic heart disease of native coronary artery without angina pectoris; I48.0 Paroxysmal atrial fibrillation; I95.9 Hypotension, unspecified; D64.9 Anemia, unspecified; Y83.8 Other surgical procedures as the cause of abnormal reaction of the patient, or of later complication, without mention of misadventure at the time of the procedure; Y92.89 Other specified places as the place of occurrence of the external cause; Z79.899 Other long term (current) drug therapy; Z88.8 Allergy status to other drugs, medicaments and biological substances; Z95.0 Presence of cardiac pacemaker; Z68.20 Body mass index [BMI] 20.0-20.9, adult; Z82.49 Family history of ischemic heart disease and other diseases of the circulatory system
CPT/HCPCS: 36415; 36902; 80048; 80053; 85025; 85610; 85730; 86850; 86900; 86901; A9270-GY; C1725; C1751; C1769; C1894; J1644; J2250; J2597; J3010; J3370; Q9967

== ENCOUNTER 2019-07-02 18:58 | Inpatient (IN) | payer MEDICARE ==
[2019-07-02 20:20] LABS: Basophils % (Auto) 0.3 % (0.0-1.8); Eosinophils # (Auto) 0.1 K/mm3 (0.0-0.4); Eosinophils % (Auto) 1.2 % (0.0-4.3); Hematocrit 32.7 % (35.5-45.6); Hemoglobin 11.3 gm/dl (11.8-15.2); Lymphocytes # (Auto) 0.3 K/mm3 (1.2-5.4); Lymphocytes % (Auto) 3.6 % (13.4-35.0); Mean Corpuscular HGB Conc 35 % (32-34); Mean Corpuscular Volume 95 fl (84-94); Monocytes # (Auto) 0.5 K/mm3 (0.0-0.8); Monocytes % (Auto) 5.8 % (0.0-7.3); Platelet Count 160 K/mm3 (140-440); Red Blood Count 3.46 M/mm3 (3.65-5.03); Red Cell Distribution Width 15.6 % (13.2-15.2)
--- NOTE | 2019-07-02 20:25 | Emergency Department Report ---
ED Altered Mental Status HPI - General Chief Complaint: Altered Mental Status Stated Complaint: ALTERED Time Seen by Provider: 07/02/19 20:08 Source: family, EMS Mode of arrival: Stretcher Limitations: Altered Mental Status - History of Present Illness Initial Comments: Mr. 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 has a history of hypertension end-stage renal disease dialysis Tuesday and Tuesday also cardiac history of atrial fib prior signs patient presents tonight for altered mental status status post dialysis today son states normal amount of fluid was drawn during dialysis altered mental status is new for this patient however has documented case of same symptoms 2017 MD Complaint: altered mental status Onset/Timin -: days(s) Severity: moderate Consistency of Symptoms: waxing and waning Context: other (ESRD ) Associated Symptoms: weakness - Related Data Home Medications Medication Instructions Recorded Confirmed Last Taken B Complex 11/Folic/C/Biot/Zinc 1 each PO DAILY 06/13/13 07/02/19 09/06/18 [Dialyvite with Zinc Tablet] Esomeprazole Magnesium [NexIUM] 40 mg PO DAILY 06/13/13 07/02/19 09/06/18 40 mg Calcium Acetate [Phoslo] 667 mg PO TIDWM 09/07/18 07/02/19 09/06/18 Amlodipine Besylate [Norvasc] 5 mg PO QDAY 07/02/19 07/02/19 Unknown Cinacalcet [Sensipar] 30 mg PO QDAY 07/02/19 07/02/19 Unknown Previous Rx's Medication Instructions Recorded Last Taken Type Carvedilol [Coreg] 3.125 mg PO BID #60 tablet 09/09/18 Unknown Rx Allergies Allergy/AdvReac Type Severity Reaction Status Date / Time cefazolin sodium [From Ancef] AdvReac Severe Shortness Verified 04/20/17 17:25 of Breath ED Review of Systems ROS: Stated complaint: ALTERED Other details as noted in HPI Constitutional: malaise Eyes: denies: eye pain, eye discharge, vision change ENT: denies: ear pain, throat pain Respiratory: denies: cough, shortness of breath, wheezing Cardiovascular: denies: chest pain, palpitations Endocrine: no symptoms reported Gastrointestinal: denies: abdominal pain, nausea, vomiting, diarrhea, constipation, melena Genitourinary: other (anuric ). denies: hematuria Musculoskeletal: denies: back pain, joint swelling, arthralgia Skin: denies: rash, lesions Neurological: weakness, confusion, abnormal gait. denies: numbness, paresthesias Psychiatric: denies: anxiety, depression Hematological/Lymphatic: denies: easy bleeding, easy bruising ED Past Medical Hx - Past Medical History Hx Hypertension: Yes Hx CVA: No Hx Heart Attack/AMI: No Hx Congestive Heart Failure: No Hx Diabetes: No Hx Deep Vein Thrombosis: No Hx Pulmonary Embolism: No Hx GERD: No Hx Liver Disease: No Hx Renal Disease: Yes Hx Sickle Cell Disease: No Hx Arthritis: No Hx Headaches / Migraines: No Hx Seizures: No (family denies) Hx Kidney Stones: No Hx Psychiatric Treatment: No Hx Asthma: No Hx COPD: No Hx Tuberculosis: No Hx Dementia: No (son believes he may have dementia) Hx HIV: No - Surgical History Hx Coronary Stent: No Hx Open Heart Surgery: No Hx Pacemaker: Yes Hx Internal Defibrillator: Yes Hx Cholecystectomy: No Hx Appendectomy: No Hx Breast Surgery: No - Social History Smoking Status: Never Smoker Substance Use Type: None - Medications Home Medications: Home Medications Medication Instructions Recorded Confirmed Last Taken Type B Complex 11/Folic/C/Biot/Zinc 1 each PO DAILY 06/13/13 07/02/19 09/06/18 History [Dialyvite with Zinc Tablet] Esomeprazole Magnesium [NexIUM] 40 mg PO DAILY 06/13/13 07/02/19 09/06/18 History 40 mg Calcium Acetate [Phoslo] 667 mg PO TIDWM 09/07/18 07/02/19 09/06/18 History Carvedilol [Coreg] 3.125 mg PO BID #60 tablet 09/09/18 07/02/19 Unknown Rx Amlodipine Besylate [Norvasc] 5 mg PO QDAY 07/02/19 07/02/19 Unknown History Cinacalcet [Sensipar] 30 mg PO QDAY 07/02/19 07/02/19 Unknown History ED Physical Exam - General Limitations: Altered Mental Status General appearance: alert, in no apparent distress - Head Head exam: Present: normocephalic, normal inspection - Eye Eye exam: Present: normal appearance, PERRL, EOMI. Absent: conjunctival injection, nystagmus Pupils: Present: normal accommodation - ENT ENT exam: Present: normal orophraynx, mucous membranes moist, TM's normal bilaterally, normal external ear exam - Neck Neck exam: Present: normal inspection, full ROM. Absent: tenderness, lymphadenopathy - Respiratory Respiratory exam: Present: normal lung sounds bilaterally. Absent: respiratory distress, wheezes, rales, rhonchi, stridor, chest wall tenderness, prolonged expiratory - Cardiovascular Cardiovascular Exam: Present: regular rate, normal rhythm, normal heart sounds. Absent: systolic murmur, diastolic murmur, rubs, gallop - GI/Abdominal GI/Abdominal exam: Present: soft, normal bowel sounds. Absent: distended, tenderness, guarding, rebound, rigid, bruit, hernia - Rectal Rectal exam: Present: deferred - Extremities Exam Extremities exam: Present: normal inspection, full ROM, normal capillary refill. Absent: tenderness, pedal edema, joint swelling - Back Exam Back exam: Present: normal inspection, full ROM. Absent: tenderness, CVA tenderness (R), CVA tenderness (L), vertebral tenderness, rash noted - Neurological Exam Neurological exam: Present: altered, CN II-XII intact, reflexes normal. Absent: motor sensory deficit - Expanded Neurological Exam Expanded Patient oriented to: Present: person Speech: Present: fluid speech Cranial nerves: EOM's Intact: Normal, Gag Reflex: Normal, Tongue Deviation: Norm al, Nystagmus: Normal, Facial Sensation: Normal Cerebellar function: Finger to Nose: Normal, Heel to Nj: Normal Upper motor neuron: Enzo Neglect: Normal, Pronator Drift: Normal, Babinski Sign: Normal Motor strength exam: RUE: 5, LUE: 5, RLE: 5, LLE: 5 DTR: bicep (R): 2+, bicep (L): 2+, ankle (R): 2+, ankle (L): 2+ Best Eye Response (Ronks): (4) open spontaneously Best Motor Response (Ronks): (6) obeys commands Best Verbal Response (Ronks): (4) confused conversation Corby Total: 14 - Psychiatric Psychiatric exam: Present: anxious - Skin Skin exam: Present: warm, dry, intact, normal color. Absent: rash - Assessment Assessment Interval: Baseline - Level of Consciousness 1a. Level of Consciousness: arousable/minor stimuli - LOC Questions 1b. LOC Questions: answers 1 question correctly - LOC Command 1c. LOC Commands: performs tasks correctly - Best Gaze 2. Best Gaze: normal - Visual 3. Visual: no visual loss - Facial Palsy 4. Facial Palsy: normal symmetrical movement - Motor Arm 5a. Motor Arm Left: no drift 5b. Motor Arm Right: no drift - Motor Leg 6a. Motor Leg Left: no drift 6b. Motor Leg Right: no drift - Limb Ataxia 7. Limb Ataxia: absent - Sensory 8. Sensory: normal - Best Language 9. Best Language: no aphasia - Dysarthria 10. Dysarthria: normal - Extinction and Inattention 11. Extinction/Inattention: no abnormality - Scoring Total Score: 2 Stroke Severity: Minor Stroke ED Course Vital Signs 07/02/19 07/02/19 19:18 19:48 Temperature 98 F 97.9 F Pulse Rate 88 92 H Respiratory 14 22 Rate Blood Pressure 147/68 159/93 [Left] O2 Sat by Pulse 97 100 Oximetry - Lab Data Result diagrams: 07/02/19 20:04 07/02/19 20:04 Lab Results 07/02/19 07/02/19 07/02/19 Range/Units 20:04 20:04 20:29 WBC 8.7 (4.5-11.0) K/mm3 RBC 3.46 L (3.65-5.03) M/mm3 Hgb 11.3 L (11.8-15.2) gm/dl Hct 32.7 L (35.5-45.6) % MCV 95 H (84-94) fl MCH 33 H (28-32) pg MCHC 35 H (32-34) % RDW 15.6 H (13.2-15.2) % Plt Count 160 (140-440) K/mm3 Lymph % (Auto) 3.6 L (13.4-35.0) % Hood % (Auto) 5.8 (0.0-7.3) % Eos % (Auto) 1.2 (0.0-4.3) % Baso % (Auto) 0.3 (0.0-1.8) % Lymph # 0.3 L (1.2-5.4) K/mm3 Hood # 0.5 (0.0-0.8) K/mm3 Eos # 0.1 (0.0-0.4) K/mm3 Baso # 0.0 (0.0-0.1) K/mm3 Seg Neutrophils % 89.1 H (40.0-70.0) % Seg Neutrophils # 7.8 H (1.8-7.7) K/mm3 Sodium 133 L (137-145) mmol/L Potassium 3.3 L (3.6-5.0) mmol/L Chloride 86.0 L (98-107) mmol/L Carbon Dioxide 30 (22-30) mmol/L Anion Gap 20 mmol/L BUN 19 (9-20) mg/dL Creatinine 5.0 H (0.8-1.5) mg/dL Estimated GFR 11 ml/min BUN/Creatinine Ratio 4 % Glucose 185 H (75-100) mg/dL Calcium 8.4 (8.4-10.2) mg/dL Magnesium 2.10 (1.7-2.3) mg/dL Troponin T 0.081 H (0.00-0.029) ng/mL Triglycerides 124 (2-149) mg/dL Cholesterol 266 H (50-199) mg/dL LDL Cholesterol Direct 208 H (50-130) mg/dL HDL Cholesterol 49 (40-59) mg/dL Cholesterol/HDL Ratio 5.42 % 07/02/19 Range/Units 22:22 WBC (4.5-11.0) K/mm3 RBC (3.65-5.03) M/mm3 Hgb (11.8-15.2) gm/dl Hct (35.5-45.6) % MCV (84-94) fl MCH (28-32) pg MCHC (32-34) % RDW (13.2-15.2) % Plt Count (140-440) K/mm3 Lymph % (Auto) (13.4-35.0) % Hood % (Auto) (0.0-7.3) % Eos % (Auto) (0.0-4.3) % Baso % (Auto) (0.0-1.8) % Lymph # (1.2-5.4) K/mm3 Hood # (0.0-0.8) K/mm3 Eos # (0.0-0.4) K/mm3 Baso # (0.0-0.1) K/mm3 Seg Neutrophils % (40.0-70.0) % Seg Neutrophils # (1.8-7.7) K/mm3 Sodium (137-145) mmol/L Potassium (3.6-5.0) mmol/L Chloride (98-107) mmol/L Carbon Dioxide (22-30) mmol/L Anion Gap mmol/L BUN (9-20) mg/dL Creatinine (0.8-1.5) mg/dL Estimated GFR ml/min BUN/Creatinine Ratio % Glucose (75-100) mg/dL Calcium (8.4-10.2) mg/dL Magnesium (1.7-2.3) mg/dL Troponin T 0.084 H (0.00-0.029) ng/mL Triglycerides (2-149) mg/dL Cholesterol (50-199) mg/dL LDL Cholesterol Direct (50-130) mg/dL HDL Cholesterol (40-59) mg/dL Cholesterol/HDL Ratio % - Radiology Data Radiology results: report reviewed, image reviewed stable bibasilar ganglia calcifications and gyriform, mild changes to occipital infarct of [id number], No acute intrcranal abnormality cxr: Mild increased interstitial Markings. - Medical Decision Making trop ; 0.08 x2, ct: mild changes since 09/06/2018 no acute intracranial abnormality, pt remains AMS, Labs noted and discussed with hospitalist pt admitted for AMS to Hospitalist at this time, discussed plan of care with family members same verbalized agreement and understanding with same, Adult son advise that he will translate for father and mother who speak [place]ian. pt resting quitely with nad at this time. - NEXUS Criteria Focal neurological deficit present: No Midline spinal tenderness present: No Altered level of consciousness: Yes Intoxication present: No Distracting injury present: No NEXUS results: C-Spine cannot be cleared clinically by these results. Imaging is required. Critical care attestation.: If time is entered above; I have spent that time in minutes in the direct care of this critically ill patient, excluding procedure time. ED Disposition Clinical Impression: AMS (altered mental status) Qualifiers: Altered mental status type: unspecified Qualified Code(s): R41.82 - Altered mental status, unspecified Disposition: -09 OP ADMIT IP TO THIS HOSP Is pt being admited?: Yes Does the pt Need Aspirin: No Condition: Stable
[2019-07-02 20:37] LABS: Calcium 8.4 mg/dL (8.4-10.2)
--- NOTE | 2019-07-02 21:19 | XRay Report ---
CHEST 1 VIEW INDICATION / CLINICAL INFORMATION: ams. COMPARISON: 03/08/2017 FINDINGS: SUPPORT DEVICES: AICD appears unchanged HEART / MEDIASTINUM: There is enlargement of the cardiac silhouette. Atherosclerotic calcifications a re noted in the aorta LUNGS / PLEURA: There is increased interstitial markings bilaterally characteristic of pulmonary [place] a. There is mild venous congestion.. No pneumothorax. ADDITIONAL FINDINGS: No significant additional findings. IMPRESSION: 1. There is mild increased interstitial markings bilaterally characteristic of edema. No pneumothorax is seen. Signer Name: Shahid Mays MD Signed: 07/02/2019 9:15 PM Workstation Name: [id number]
[2019-07-02 21:24] LABS: Chol/HDL Ratio 5.42 %
--- NOTE | 2019-07-02 21:28 | Cat Scan Report ---
CT HEAD WITHOUT CONTRAST INDICATION / CLINICAL INFORMATION: AMS. TECHNIQUE: All CT scans at this location are performed using CT dose reduction for ALARA by means of automated e xposure control. COMPARISON: Head CT 09/07/2018. FINDINGS: HEMORRHAGE: No evidence of intracranial hemorrhage or extra-axial fluid collection. EXTRA-AXIAL SPACES: Cortical sulci and sylvian fissures are enlarged reflecting a degree of parenchym al volume loss which is within normal limits for the patient's age. Basilar cisterns have an unremark able appearance. VENTRICULAR SYSTEM: The third and lateral ventricles are enlarged reflecting resonance of age related parenchymal volume loss. CEREBRAL PARENCHYMA: Encephalomalacia is present along the medial aspect of the right occipital lobe secondary to remote right posterior cerebral artery infarction. This has developed since 09/07/2018. Again demonstrated are bilateral basal ganglia calcifications as well as cortical calcifications kitty g the medial aspect of the occipital and parietal lobes. These findings are not significantly changed . MIDLINE SHIFT OR HERNIATION: There is no mass effect. CEREBELLUM / BRAINSTEM: Brainstem and cerebellum have an unremarkable appearance. INTRACRANIAL VESSELS: Extensively calcified atherosclerotic plaque is present along the course of the cavernous segments of both internal carotid arteries. Similar findings are seen at the distal verteb ral arteries. ORBITS: visualized portions of the orbits have an unremarkable appearance. SOFT TISSUES of HEAD: No significant abnormality. CALVARIUM: Evaluation of bone windows reveals no abnormalities. PARANASAL SINUSES / MASTOID AIR CELLS: Paranasal sinuses are free from inflammatory mucosal disease. Mastoid air cells are normally pneumatized. IMPRESSION: 1. Since head CT 09/07/2018 there is been interval development of changes of right occipital infarcti on. 2. Stable appearing bilateral basal ganglia calcifications and gyriform calcifications along the medi al aspect of the parietal and occipital lobes. 3. No acute intracranial abnormality. Signer Name: Ky Wiseman MD Signed: 07/02/2019 9:24 PM Workstation Name: [id number]
[2019-07-03] MEDS ORDERED: ACETAMINOPHEN 325 MG TAB PO PRN (01:42)
[2019-07-03] MEDS ORDERED: POTASSIUM CHLORIDE 10 MEQ 10 MEQ/100 ML BAG IV ONE (01:45)
[2019-07-03] MEDS: POTASSIUM CHLORIDE ER 20 MEQ TAB PO ONE ×2 (02:31→02:32)
--- NOTE | 2019-07-03 05:25 | History and Physical Report ---
CHIEF COMPLAINT: Change in mental status. HISTORY OF PRESENT ILLNESS: The patient is a 73-year-old male who is on dialysis for end-stage renal disease on Mondays, Wednesdays and Fridays and the patient had dialysis done yesterday, 07/02/2019, and after dialysis, he was noted to be having change in mental status and feeling weak. There was no history of fever and no history of chills. There was also no history of chest pain or pain anywhere in the body and the patient was brought to the Emergency Room by the family because of change in mental status. PAST MEDICAL HISTORY: Pertinent for hypertension; end-stage renal disease, on dialysis. Also, the patient has past medical history of irregular heartbeat. PAST SURGICAL HISTORY: Pertinent for internal defibrillator placement and pacemaker placement. FAMILY HISTORY: Noncontributory. SOCIAL HISTORY: The patient lives with family. He does not smoke, does not drink alcohol, and does not use illicit drugs. MEDICATIONS: The patient is on Dialyvite 1 by mouth daily, Nexium 40 mg by mouth daily, calcium acetate, PhosLo 667 mg by mouth 3 times daily with meals. Also, the patient is on Coreg 3.125 mg by mouth twice daily and on Norvasc 5 mg by mouth daily and Sensipar 30 mg by mouth daily. ALLERGIES: THE PATIENT IS ALLERGIC TO CEFAZOLIN SODIUM. REVIEW OF SYSTEMS: CONSTITUTIONAL: There is no fever, no chills, no diaphoresis. HEENT: There is no headache or sore throat. CARDIOVASCULAR SYSTEM: There is no chest pain or orthopnea. RESPIRATORY SYSTEM: There is no shortness of breath or cough. GASTROINTESTINAL SYSTEM: There is no nausea, no vomiting, no abdominal pain, diarrhea or constipation. NEUROLOGICAL SYSTEM: Change in mental status noted, weakness noted. No numbness. MUSCULOSKELETAL SYSTEM: There is no joint pain or swelling. DERMATOLOGICAL SYSTEM: There is no skin rash or itching. GENITOURINARY SYSTEM: Denies dysuria, but no hematuria or flank pain. Rest of systems review is normal. PHYSICAL EXAMINATION: GENERAL: At the time of exam, the patient was found to be lethargic, but easily arousable, and able to communicate, but still confused and not in acute distress. VITAL SIGNS: At the initial time of presentation showed temperature of 98 degrees Fahrenheit, pulse of 88, respirations 14, blood pressure 147/68, O2 sat of 97% on room air. HEENT: Showed pupils to be equal, round, reactive to light and accommodating. Extraocular muscles are intact. NECK: Supple with no JVD or carotid bruit. CARDIOVASCULAR SYSTEM: Showed normal first and second heart sounds with irregularly irregular rhythm. RESPIRATORY SYSTEM: Showed good air entry on both sides of the lungs with no abnormal breath sounds. GASTROINTESTINAL SYSTEM: Showed abdomen to be full, soft, nontender with no organomegaly or rigidity. NEUROLOGIC: Showed the patient to be lethargic, but easily arousable with no focal deficit. MUSCULOSKELETAL SYSTEM: Showed no joint swelling or tenderness. DERMATOLOGICAL SYSTEM: Showed no skin rash. GENITOURINARY SYSTEM: Showing no costovertebral angle tenderness. PERTINENT LABORATORY AND IMAGING STUDIES: The patient had CT of the head without contrast done that shows interval development of changes of right occipital infarctions since the head CT done in 09/07/2018. There are stable appearing bilateral basal ganglia calcification and gyriform calcification along the medial aspect of the parietal and occipital lobes. There is no acute intracranial abnormality. Also, the patient had chest x-ray done that shows mild increased interstitial markings bilaterally, characteristic of edema with no pneumothorax seen. Lab results: The patient has CBC done with normal white count, low hemoglobin of 11.3, low hematocrit of 32.7 and high MCV of 95 with CBC differential showing elevated segmented neutrophil count of 89.1%. The patient's chemistry showed low sodium level of 133, low potassium level of 3.3 with low chloride level of 86 and elevated creatinine level of 5.0 with normal BUN and low estimated GFR of 11. The patient's troponin level is elevated with a value of 0.084 and lipid panel shows high total cholesterol of 266 with high LDL cholesterol of 208. DIAGNOSES: 1. Altered mental status. 2. Elevated troponin level. 3. End-stage renal disease, on dialysis. 4. Hypokalemia. 5. Weakness. PLAN OF CARE: 1. The patient will be placed on observation on remote telemetry. 2. The patient will have serial cardiac enzymes involving troponin, total CK, and CK-MB done every 6 hours x 2 more levels. 3. The patient will have Nephrology consult with Dr. Johnnie Stephens and we will also have Physical Therapy consult for evaluation and treatment of generalized weakness. 4. The patient will be on his home medication as shown in the medication reconciliation section. 5. The patient will have potassium replacement with 40 mEq of potassium by mouth one time and IV potassium chloride 10 mEq in 100 mL of normal saline over 1 hour and involves 2 doses. 6. The patient will be on Tylenol 650 mg by mouth every 4 hours for fever and headache. 7. The patient's DVT prophylaxis will be through sequential compressive device. 8. The patient's diet will be 2 g sodium diet. JOB# [id number] OCN/NTS
[2019-07-03 06:49] LABS: Creatine Kinase MB 5.5 ng/mL (0.0-4.0)
[2019-07-03] MEDS: CALCIUM ACETATE 667 MG CAP PO SCH ×3 (08:53→17:24)
--- NOTE | 2019-07-03 10:01 | Consultation ---
History of Present Illness - Reason for Consult Consult date: 07/03/19 end stage renal disease - History of Present Illness patient is a 73 year old male with ESRD on HD every MWF, last tx was yesterday, his daughter is at bedside, she stated she does not know his current dermatologist, he was brought to the ER yesterday for AMS, CT head was negative for acute intracranial process, renal consult was requested for HD management while inpatient. Past History Past Medical History: ESRD, hypertension Medications and Allergies Allergies Allergy/AdvReac Type Severity Reaction Status Date / Time cefazolin sodium [From Ancef] AdvReac Severe Shortness Verified 04/20/17 17:25 of Breath Home Medications Medication Instructions Recorded Confirmed Last Taken Type B Complex 11/Folic/C/Biot/Zinc 1 each PO DAILY 06/13/13 07/02/19 09/06/18 History [Dialyvite with Zinc Tablet] Esomeprazole Magnesium [NexIUM] 40 mg PO DAILY 06/13/13 07/02/19 09/06/18 History 40 mg Calcium Acetate [Phoslo] 667 mg PO TIDWM 09/07/18 07/02/19 09/06/18 History Carvedilol [Coreg] 3.125 mg PO BID #60 tablet 09/09/18 07/02/19 Unknown Rx Amlodipine Besylate [Norvasc] 5 mg PO QDAY 07/02/19 07/02/19 Unknown History Cinacalcet [Sensipar] 30 mg PO QDAY 07/02/19 07/02/19 Unknown History Active Meds: Active Medications Acetaminophen (Tylenol) 650 mg PO Q4H PRN PRN Reason: Fever >101 Amlodipine Besylate (Norvasc) 5 mg PO QDAY PARI Calcium Acetate (Phoslo) 667 mg PO TIDWM [facility] Last Admin: 07/03/19 08:53 Dose: Not Given Documented by: Carvedilol (Coreg) 3.125 mg PO BID PARI Cinacalcet (Sensipar) 30 mg PO QDAY [facility] Multivit/Ca Carb/B Cmplx/FA/Prenat (Renal Caps) 1 cap PO DAILY PARI Pantoprazole Sodium (Protonix) 40 mg PO DAILY PARI Review of Systems ROS unobtainable: due to mental status Exam - Vital Signs Vital signs: Vital Signs Temp Pulse Resp BP Pulse Ox 98 F 88 14 147/68 97 07/02/19 19:18 07/02/19 19:18 07/02/19 19:18 07/02/19 19:18 07/02/19 19:18 - General Appearance General appearance: well-developed, well-nourished EENT: ATNC, PERRL Neck: Present: neck supple Respiratory: Clear to Ascultation Heart: regular, S1S2 Gastrointestinal: Present: normoactive bowel sounds Integumentary: no rash, warm and dry Neurologic: no focal deficit, no asterixis Musculoskeletal: Present: other (no edema in BLE) Psychiatric: mood/affect appropriate, cooperative Results - Lab Results 07/02/19 20:04 07/02/19 20:04 Most recent lab results Calcium 8.4 mg/dL (8.4-10.2) 07/02/19 20:04 Magnesium 2.10 mg/dL (1.7-2.3) 07/02/19 20:29 Assessment and Plan ESRD on HD altered mental status Anemia in CKD HTN - no indication for HD today, ordered for tomorrow - will assess dialysis needs daily - renally dose meds - strict I&O - daily weight - renal diet Miguel Angel gAustin MD [phone]
[2019-07-03] MEDS ORDERED: SODIUM CHLORIDE 0.9% 100 ML IV PRN (10:26)
[2019-07-03] MEDS: PANTOPRAZOLE 40 MG TAB PO SCH (11:50)
[2019-07-03] MEDS: FOLIC ACID/VIT B COMP W-C 1 MG (RENAL CAPS) PO SCH (11:50)
[2019-07-03] MEDS: amLODIPine 5 MG TAB PO SCH (11:50)
[2019-07-03] MEDS: CINACALCET 30 MG TAB PO SCH (11:50)
[2019-07-03] MEDS: carvediloL 3.125 MG TAB PO SCH ×2 (11:51→23:26)
[2019-07-03 12:41] LABS: Hepatitis B Surface Antigen Non-Reactive (Negative); Hepatitis C Virus Antibody Non-Reactive (NonReactive)
[2019-07-03 13:20] LABS: Creatine Kinase MB 5.2 ng/mL (0.0-4.0)
--- NOTE | 2019-07-03 15:51 | Consultation ---
History of Present Illness Consult date: 07/03/19 Reason for Consult: Altered mental status Chief complaint: Altered mental status History of present illness: Patient is 73-year-old man with a history of hypertension, ESRD on HD, atrial fibrillation, history of pacemaker and AICD placement, history of dementia. Patient was getting hemodialysis yesterday, during which he was noted to suddenly start shaking all over, was noted to be confused, and became unresponsive. In discussion with family, it was stated that the patient had saliva coming out of his mouth. Patient was notably tired afterwards. On arrival at the hospital, the patient was waking up, however he was still confused and tired. Family states that patient has not had any previous convulsions and like episodes in the past. He is currently not on any anticoagulation. Patient at baseline is independent in most activities of daily living, however has notable cognitive deficits, and has to be repetitively reminded of knowledge of daily living. Past History Past Medical History: ESRD, hypertension, other (hypertension, ESRD on HD, atrial fibrillation, history of pacemaker and AICD placement, history of dementia) Past Surgical History: Other (pacemaker/AICD) Social history: no significant social history, lives with family Family history: no significant family history Medications and Allergies Allergies Allergy/AdvReac Type Severity Reaction Status Date / Time cefazolin sodium [From Ancef] AdvReac Severe Shortness Verified 04/20/17 17:25 of Breath Home Medications Medication Instructions Recorded Confirmed Last Taken Type B Complex 11/Folic/C/Biot/Zinc 1 each PO DAILY 06/13/13 07/02/19 09/06/18 History [Dialyvite with Zinc Tablet] Esomeprazole Magnesium [NexIUM] 40 mg PO DAILY 06/13/13 07/02/19 09/06/18 History 40 mg Calcium Acetate [Phoslo] 667 mg PO TIDWM 09/07/18 07/02/19 09/06/18 History Carvedilol [Coreg] 3.125 mg PO BID #60 tablet 09/09/18 07/02/19 Unknown Rx Amlodipine Besylate [Norvasc] 5 mg PO QDAY 07/02/19 07/02/19 Unknown History Cinacalcet [Sensipar] 30 mg PO QDAY 07/02/19 07/02/19 Unknown History Active Meds: Active Medications Acetaminophen (Tylenol) 650 mg PO Q4H PRN PRN Reason: Fever >101 Amlodipine Besylate (Norvasc) 5 mg PO QDAY [facility] Last Admin: 07/03/19 11:50 Dose: 5 mg Documented by: Calcium Acetate (Phoslo) 667 mg PO TIDWM [facility] Last Admin: 07/03/19 11:50 Dose: 667 mg Documented by: Carvedilol (Coreg) 3.125 mg PO BID [facility] Last Admin: 07/03/19 11:51 Dose: 3.125 mg Documented by: Cinacalcet (Sensipar) 30 mg PO QDAY [facility] Last Admin: 07/03/19 11:50 Dose: 30 mg Documented by: Sodium Chloride (Nacl 0.9%) 100 mls @ 999 mls/hr IV SHARON PRN PRN Reason: Hypotension Multivit/Ca Carb/B Cmplx/FA/Prenat (Renal Caps) 1 cap PO DAILY [facility] Last Admin: 07/03/19 11:50 Dose: 1 cap Documented by: Pantoprazole Sodium (Protonix) 40 mg PO DAILY [facility] Last Admin: 07/03/19 11:50 Dose: 40 mg Documented by: Review of Systems ROS unobtainable: due to mental status Physical Examination - Vital Signs Vital Signs: Vital Signs Temp Pulse Resp BP Pulse Ox 98 F 88 14 147/68 97 07/02/19 19:18 07/02/19 19:18 07/02/19 19:18 07/02/19 19:18 07/02/19 19:18 - Physical Exam Narrative exam: Patient is awake, alert, oriented only to self, follows one-step commands. Pupils equal, round, reactive to light. Visual tavares decreased on the left to threat. No facial weakness noted. Patient able to move all extremities against gravity, however has some difficulty following commands, therefore limiting strength testing. 2+ reflexes throughout. Bilaterally withdraws to pain stimulation in all extremities. - Constitutional General appearance: comfortable - EENT EENT: Present: ATNC, PERRL, mucous membranes moist - Respiratory Respiratory: Present: lungs clear, normal breath sounds - Cardiovascular Cardiovascular: Present: regular rate, normal S1, normal S2 Extremities: Present: no clubbing, cyanosis, no inflammation - Gastrointestinal Gastrointestinal: Present: normoactive bowel sounds, soft, non-tender - Integumentary Integumentary: Present: normal - Musculoskeletal Musculoskeletal: Present: no pain, normal range of motion Results - Laboratory Findings CBC and BMP: 07/02/19 20:04 07/02/19 20:04 Abnormal Lab Findings: Abnormal Labs 07/02/19 07/02/19 07/02/19 20:04 20:04 20:29 RBC 3.46 L Hgb 11.3 L Hct 32.7 L MCV 95 H MCH 33 H MCHC 35 H RDW 15.6 H Lymph % (Auto) 3.6 L Lymph # 0.3 L Seg Neutrophils % 89.1 H Seg Neutrophils # 7.8 H Sodium 133 L Potassium 3.3 L Chloride 86.0 L Creatinine 5.0 H Glucose 185 H Total Creatine Kinase CK-MB (CK-2) Troponin T 0.081 H Cholesterol 266 H LDL Cholesterol Direct 208 H 07/02/19 07/03/19 07/03/19 22:22 06:18 12:12 RBC Hgb Hct MCV MCH MCHC RDW Lymph % (Auto) Lymph # Seg Neutrophils % Seg Neutrophils # Sodium Potassium Chloride Creatinine Glucose Total Creatine Kinase 456 H 696 H CK-MB (CK-2) 5.5 H 5.2 H Troponin T 0.084 H 0.095 H 0.096 H Cholesterol LDL Cholesterol Direct Assessment and Plan Patient is 73-year-old man with a history of hypertension, ESRD on HD, atrial fibrillation, history of pacemaker and AICD placement, history of dementia, who presents with convulsions and altered mental status during dialysis. According the patient's clinical findings, it is possible that he has had a seizure. In support of this differential diagnosis, the patient was noted to have convulsions, confusion and unresponsiveness, and was noted to be tired after the event. Patient also has evidence of a chronic right occipital infarct, which is a new finding since previous CT scan done August 2018. Plan: 1. Altered mental status: - Possible seizure vs. metabolic encephalopathy vs. stroke - Patient has baseline dementia, however currently mental status is worsened from baseline - Check EEG - As patient has PPM/AICD, will re-check CT head to rule out any evidence of acute infarct - Check UA - Recommend cardiology consult (patient reportedly followed by [facility] as [facility]), as patient has h/o PPM/AICD, and may require anti-coagulation if has history of AFIB. Of note, CT head showed remote stroke, which is new since previous CT head from August 2018. - If patient has a seizure, recommend 1mg ativan stat. If seizure does not resolve within 2 minutes of first dose, can repeat X1. Please page primary team and neurology if patient has a seizure. - Continue to investigate/correct metabolic abnormalities per primary team - Will continue to monitor neurologic status. Thank you for allowing me to take part in the care of this patient. Timothy An MD Neurology
--- NOTE | 2019-07-03 16:30 | Event Note ---
Date: 07/03/19 Admitted this morning for AMS, pt seen and examined, i meet his daughter Jason at bedside, who interprete I consulted Neurology, ?seizures, also patient had new ischemic event sometime within 1 year (not acute) due to comparison CT head, also unable to do MRI because ICD/PPM, ?afib, will consult his cardiology to see if he needs Anticoagulation. EEG pending.
--- NOTE | 2019-07-03 17:43 | Cat Scan Report ---
CT BRAIN: 07/03/2019 INDICATION / CLINICAL INFORMATION: possible stroke. COMPARISON: 07/02/2019 FINDINGS: BRAIN/INTRACRANIAL STRUCTURES: Unenhanced CT images of the brain were obtained and compared to a prio r exam from 07/02/2019. There has been no change. Again seen is prominent diffuse cerebral atrophy, chronic encephalomalacia in the right occipital lob e, and prominent basal ganglia and general form calcifications. There is no evidence of acute superimposed abnormality. There is no evidence of hemorrhage. There is no CT evidence of acute large vessel territory ischemic injury. Atherosclerotic vascular calcifications are present in the distal internal carotid arteries and verte bral arteries. EXTRACRANIAL STRUCTURES: Unremarkable. IMPRESSION: No acute abnormality. Extensive chronic changes, stable when compared to 07/02/2019. All CT scans at this location are performed using dose reduction to ALARA by means of automated expos ure control. Signer Name: Fish Lopez MD Signed: 07/03/2019 5:39 PM Workstation Name: [id number]
[2019-07-04] MEDS: CINACALCET 30 MG TAB PO SCH (09:06)
[2019-07-04] MEDS: carvediloL 3.125 MG TAB PO SCH (09:06)
[2019-07-04] MEDS: amLODIPine 5 MG TAB PO SCH (09:06)
[2019-07-04] MEDS: FOLIC ACID/VIT B COMP W-C 1 MG (RENAL CAPS) PO SCH (09:06)
[2019-07-04] MEDS: PANTOPRAZOLE 40 MG TAB PO SCH (09:07)
[2019-07-04] MEDS: CALCIUM ACETATE 667 MG CAP PO SCH ×3 (09:07→17:37)
--- NOTE | 2019-07-04 10:53 | Consultation ---
History of Present Illness Consult date: 07/04/19 Requesting physician: PENELOPE SEARS Consult reason: elevated troponin History of present illness: The patient is followed by Dr. Millard in our office. The history was obtained mainly from the patient's son. He has a history of CAD, status post PCI, permanent atrial fibrillation and cardiomyopathy which has improved. He has an ICD in situ. Echocardiogram in August 2008 revealed an ejection fraction of 4550 percent. PET myocardial perfusion imaging in October 2018 was negative for ischemia. After returning home from dialysis 2 days ago, the patient's son observed altered sensorium with tonic-clonic activity which lasted for about 10 minutes followed by a period of unresponsiveness of about 2 hours. The EMS was activated and the patient was brought to the emergency department. Brain CT scan revealed interval development of a right occipital infarct since that of August 2018. However, he was not felt to have any acute findings. The patient denies any chest pain, dyspnea, palpitations or dizziness. Troponin level is mildly elevated. However, he has end-stage renal disease. Past History Past Medical History: atrial fib (permanent), arrhythmia (VT), CAD, ESRD, hypertension, hyperlipidemia, other (hypertension, ESRD on HD, atrial fibrillation, history of pacemaker and AICD placement, history of dementia) Past Surgical History: PTCA, Other (ICD) Social history: denies: smoking, alcohol abuse Family history: no significant family history Medications and Allergies Allergies Allergy/AdvReac Type Severity Reaction Status Date / Time cefazolin sodium [From Ancef] AdvReac Severe Shortness Verified 04/20/17 17:25 of Breath Home Medications Medication Instructions Recorded Confirmed Last Taken Type B Complex 11/Folic/C/Biot/Zinc 1 each PO DAILY 06/13/13 07/02/19 09/06/18 History [Dialyvite with Zinc Tablet] Esomeprazole Magnesium [NexIUM] 40 mg PO DAILY 06/13/13 07/02/19 09/06/18 History 40 mg Calcium Acetate [Phoslo] 667 mg PO TIDWM 09/07/18 07/02/19 09/06/18 History Carvedilol [Coreg] 3.125 mg PO BID #60 tablet 09/09/18 07/02/19 Unknown Rx Amlodipine Besylate [Norvasc] 5 mg PO QDAY 10/07/19 10/07/19 Unknown History Cinacalcet [Sensipar] 30 mg PO QDAY 07/02/19 07/02/19 Unknown History Active Meds: Active Medications Acetaminophen (Tylenol) 650 mg PO Q4H PRN PRN Reason: Fever >101 Amlodipine Besylate (Norvasc) 5 mg PO QDAY [facility] Last Admin: 07/04/19 09:06 Dose: 5 mg Documented by: Calcium Acetate (Phoslo) 667 mg PO TIDWM [facility] Last Admin: 07/04/19 09:07 Dose: 667 mg Documented by: Carvedilol (Coreg) 3.125 mg PO BID [facility] Last Admin: 07/04/19 09:06 Dose: 3.125 mg Documented by: Cinacalcet (Sensipar) 30 mg PO QDAY [facility] Last Admin: 07/04/19 09:06 Dose: 30 mg Documented by: Sodium Chloride (Nacl 0.9%) 100 mls @ 999 mls/hr IV SHARON PRN PRN Reason: Hypotension Multivit/Ca Carb/B Cmplx/FA/Prenat (Renal Caps) 1 cap PO DAILY [facility] Last Admin: 07/04/19 09:06 Dose: 1 cap Documented by: Pantoprazole Sodium (Protonix) 40 mg PO DAILY [facility] Last Admin: 07/04/19 09:07 Dose: 40 mg Documented by: Review of Systems Constitutional: no fever, no chills Ears, nose, mouth and throat: no ear pain, no ear discharge, no sore throat Cardiovascular: no chest pain, no palpitations, no lightheadedness, no shortness of breath Respiratory: no cough, no hemoptysis, no shortness of breath Gastrointestinal: no abdominal pain, no nausea, no vomiting, no diarrhea, no co nstipation Genitourinary Male: no dysuria, no urinary frequency Rectal: no pain, no bleeding Musculoskeletal: no neck stiffness, no neck pain, no myalgias Integumentary: no rash, no pruritis Neurological: no weakness, no parathesias, no headaches Endocrine: no cold intolerance, no heat intolerance Hematologic/Lymphatic: no easy bruising, no easy bleeding Allergic/Immunologic: no urticaria, no wheezing Physical Examination Vital Signs Last Vital Signs Temp 98.0 F 07/04/19 04:37 Pulse 91 H 07/04/19 04:37 Resp 20 07/04/19 04:37 BP 138/91 07/04/19 04:37 Pulse Ox 99 07/04/19 04:37 General appearance: no acute distress HEENT: Positive: EOMI, Normocephaly, Mucus Membranes Moist Neck: Positive: neck supple, trachea midline Cardiac: Positive: irregularly irregular, S1/S2 Lungs: Positive: clear to auscultation Neuro: Positive: Grossly Intact Abdomen: Positive: Soft, Active Bowel Sounds. Negative: Tender Skin: Positive: Clear. Negative: Rash Musculoskeletal: Normal Range of Motion Extremities: Present: normal. Absent: edema Results 07/02/19 20:04 07/02/19 20:04 Cardiac Enzymes 07/03/19 Range/Units 12:12 CK-MB (CK-2) 5.2 H (0.0-4.0) ng/mL - Imaging and Cardiology EKG: image reviewed EKG interpretations - Telemetry EKG Rhythm: Atrial Fibrillation - EKG Supraventricular dysrhythmia: atrial fibrillation Repolarization changes or abnormalities: ST or T wave suggestive of ischemia Assessment and Plan Elevated troponin in this gentleman is rather nonspecific and may be related to his ESRD. Increase Coreg dose for better rate control of his atrial fibrillation. Otherwise, his cardiac status appears stable. - Patient Problems (1) Altered mental status Current Visit: Yes Status: Acute Qualifiers: Qualified Code(s): R41.82 - Altered mental status, unspecified (2) Elevated troponin Current Visit: Yes Status: Chronic (3) Permanent atrial fibrillation with RVR Current Visit: Yes Status: Acute (4) CAD (coronary artery disease) Current Visit: Yes Status: Chronic Qualifiers: Coronary Disease-Associated Artery/Lesion type: [place] artery (5) Stented coronary artery Current Visit: Yes Status: Chronic (6) ICD (implantable cardioverter-defibrillator) in place Current Visit: Yes Status: Chronic (7) HTN (hypertension) Current Visit: Yes Status: Chronic Qualifiers: Hypertension type: essential hypertension Qualified Code(s): I10 - Essential (primary) hypertension (8) H/O cardiomyopathy Current Visit: Yes Status: Chronic (9) ESRD (end stage renal disease) Current Visit: Yes Status: Chronic
--- NOTE | 2019-07-04 12:22 | Progress Note ---
Assessment and Plan ESRD on HD Altered mental status Anemia in CKD Hypertension - Hemodialysis today for UF and clearance - Renally dose medications - Strict I&O - Obtain daily weight - Renal diet - Will assess dialysis needs daily Subjective Date of service: 07/04/19 Principal diagnosis: ESRD Interval history: Tolerated HD well. Objective - Vital Signs Vital signs: Vital Signs - 12hr 07/04/19 04:37 Temperature 98.0 F Pulse Rate 91 H Respiratory 20 Rate Blood Pressure 138/91 O2 Sat by Pulse 99 Oximetry - General Appearance General appearance: well-developed, fatigue EENT: ATNC, PERRL Neck: no JVD, supple Respiratory: Present: Decreased Breath Sounds Cardiology: regular, S1S2 Gastrointestinal: normoactive bowel sounds Integumentary: warm and dry Neurologic: confused Musculoskeletal: other (No edema) - Lab 07/02/19 20:04 07/02/19 20:04 Most recent lab results Calcium 8.4 mg/dL (8.4-10.2) 07/02/19 20:04 Magnesium 2.10 mg/dL (1.7-2.3) 07/02/19 20:29 Medications & Allergies - Medications Allergies/Adverse Reactions: Allergies cefazolin sodium [From Anc] Adverse Reaction (Severe, Verified 04/20/17 17:25) Shortness of Breath STOPPED BREATHING Home Medications: Home Medications Medication Instructions Recorded Confirmed Last Taken Type B Complex 11/Folic/C/Biot/Zinc 1 each PO DAILY 06/13/13 07/02/19 09/06/18 History [Dialyvite with Zinc Tablet] Esomeprazole Magnesium [NexIUM] 40 mg PO DAILY 06/13/13 07/02/19 09/06/18 History 40 mg Calcium Acetate [Phoslo] 667 mg PO TIDWM 09/07/18 07/02/19 09/06/18 History Carvedilol [Coreg] 3.125 mg PO BID #60 tablet 09/09/18 07/02/19 Unknown Rx Amlodipine Besylate [Norvasc] 5 mg PO QDAY 07/02/19 07/02/19 Unknown History Cinacalcet [Sensipar] 30 mg PO QDAY 07/02/19 07/02/19 Unknown History Active Medications: Generic Name Dose Route Start Last Admin Trade Name Freq PRN Reason Stop Dose Admin Acetaminophen 650 mg 07/03/19 01:42 Tylenol PO Q4H PRN Fever >101 Amlodipine Besylate 5 mg 07/03/19 10:00 07/04/19 09:06 Norvasc PO 5 mg QDAY [facility] Administration Calcium Acetate 667 mg 07/03/19 08:00 07/04/19 09:07 Phoslo PO 667 mg TIDWM [facility] Administration Carvedilol 3.125 mg 07/03/19 10:00 07/04/19 09:06 Coreg PO 3.125 mg BID [facility] Administration Cinacalcet 30 mg 07/03/19 10:00 07/04/19 09:06 Sensipar PO 30 mg QDAY [facility] Administration Sodium Chloride 100 mls @ 999 mls/hr 07/03/19 10:26 Nacl 0.9% IV SHARON PRN Hypotension Multivit/Ca Carb/B Cmplx/FA/Prenat 1 cap 07/03/19 10:00 07/04/19 09:06 Renal Caps PO 1 cap DAILY [facility] Administration Pantoprazole Sodium 40 mg 07/03/19 10:00 07/04/19 09:07 Protonix PO 40 mg DAILY [facility] Administration
[2019-07-04] MEDS ORDERED: carvediloL 3.125 MG TAB PO SCH (12:49)
--- NOTE | 2019-07-04 13:35 | Progress Note ---
Assessment and Plan Patient is 73-year-old man with a history of hypertension, ESRD on HD, atrial fibrillation, history of pacemaker and AICD placement, history of dementia, who presents with convulsions and altered mental status during dialysis. According the patient's clinical findings, it is possible that he has had a seizure. In support of this differential diagnosis, the patient was noted to have convulsions, confusion and unresponsiveness, and was noted to be tired after the event. Patient also has evidence of a chronic right occipital infarct, which is a new finding since previous CT scan done August 2018. Plan: 1. Altered mental status: - Possible seizure vs. metabolic encephalopathy - Patient has baseline dementia, however currently mental status is worsened from baseline - Check EEG- pending - Repeat CT head did not show any evidence of acute infarct. - Check UA- pending - Patient being followed by cardiology. Defer to cardiology in regards to whether or not to start patient on anti-coagulation for A-fib. Of note, CT head showed remote stroke, which is new since previous CT head from August 2018. If decision is made to start AC, it can be done now, as there is no acute infarct on CT head. - If patient has a seizure, recommend 1mg ativan stat. If seizure does not resolve within 2 minutes of first dose, can repeat X1. Please page primary team and neurology if patient has a seizure. - Continue to investigate/correct metabolic abnormalities per primary team - Will continue to monitor neurologic status. Thank you for allowing me to take part in the care of this patient. Timothy An MD Neurology Subjective Date of service: 07/04/19 Principal diagnosis: Altered mental status Interval history: No acute events overnight. Objective - Exam Narrative Exam: Patient is awake, alert, oriented only to self, follows one-step commands. Pupils equal, round, reactive to light. Visual tavares decreased on the left to threat. No facial weakness noted. Patient able to move all extremities against gravity, however has some difficulty following commands, therefore limiting strength testing. 2+ reflexes throughout. Bilaterally withdraws to pain stimulation in all extremities. - Vital Sign Vital Signs - 12hr 07/04/19 04:37 Temperature 98.0 F Pulse Rate 91 H Respiratory 20 Rate Blood Pressure 138/91 O2 Sat by Pulse 99 Oximetry - General Apperance Constitutional: comfortable - EENT EENT: ATNC, PERRL, mucous membranes moist - Respiratory Respiratory: lungs clear, normal breath sounds - Cardiovascular Cardiovascular: regular rate, normal S1, normal S2 Extremities: no clubbing, cyanosis, no inflammation - Gastrointestinal Gastrointestinal: normoactive bowel sounds, soft, non-tender - Integumentary Integumentary: normal - Musculoskeletal Musculoskeletal: no fluid collection, no pain - Laboratory Findings CBC and BMP: 07/02/19 20:04 07/02/19 20:04 Abnormal Lab Findings: Abnormal Labs 07/02/19 07/02/19 07/02/19 20:04 20:04 20:29 RBC 3.46 L Hgb 11.3 L Hct 32.7 L MCV 95 H MCH 33 H MCHC 35 H RDW 15.6 H Lymph % (Auto) 3.6 L Lymph # 0.3 L Seg Neutrophils % 89.1 H Seg Neutrophils # 7.8 H Sodium 133 L Potassium 3.3 L Chloride 86.0 L Creatinine 5.0 H Glucose 185 H POC Glucose Total Creatine Kinase CK-MB (CK-2) Troponin T 0.081 H Cholesterol 266 H LDL Cholesterol Direct 208 H 07/02/19 07/03/19 07/03/19 22:22 06:18 12:12 RBC Hgb Hct MCV MCH MCHC RDW Lymph % (Auto) Lymph # Seg Neutrophils % Seg Neutrophils # Sodium Potassium Chloride Creatinine Glucose POC Glucose Total Creatine Kinase 456 H 696 H CK-MB (CK-2) 5.5 H 5.2 H Troponin T 0.084 H 0.095 H 0.096 H Cholesterol LDL Cholesterol Direct 07/03/19 21:10 RBC Hgb Hct MCV MCH MCHC RDW Lymph % (Auto) Lymph # Seg Neutrophils % Seg Neutrophils # Sodium Potassium Chloride Creatinine Glucose POC Glucose 106 H Total Creatine Kinase CK-MB (CK-2) Troponin T Cholesterol LDL Cholesterol Direct
--- NOTE | 2019-07-04 14:35 | Event Note ---
Date: 07/04/19 Neurology recommendations noted. Pt would benefit from systemic AC in setting of chronic AFib with evidence of remote stroke per head CT. Pt's daughter and son state that pt used to take coumadin but this medication was discontinued some time ago and they are not sure why it was discontinued. They deny any known history of bleeding, frequent falls or other contraindications to systemic AC. Indications, potential risks and benefits of systemic AC reviewed with pt's son and daughter and they are agreeable to initiation of group home AC. Initiate Eliquis 2.5mg BID. Tomasz BURNETT NP / DR. HOUGH
--- NOTE | 2019-07-04 14:49 | Progress Note ---
Assessment and Plan Assessment and plan: Patient is a 73 yo man [place]o with a history of ESRD on HD MWF, CAD, status post PCI, Atrial fibrillation, cardiomyopathy, pacemaker/AICD placement, hypertension, GERD and Advance Dementia who presented with AMS after HD. It is possible that he has had a seizure. After returning home from hemodialysis, the patient's son, Norman, observed abnormal movement with tonic-clonic activity which lasted for about 10 minutes followed by a period of unresponsiveness of about 2 hours. The EMS was called and brought patient to the emergency department. Brain CT scan revealed interval development of a right occipital infarct since that of August 2018. However, he was not felt to have any acute findings. Troponin level is mildly elevated. However, he has end-stage renal disease. -Acute metabolic encephalopathy work up in process -Suspected Seizures: EEG pending, Neurology following -ESRD on HD: Nephrology following, needing HD -Permanent atrial fibrillation with RVR: Start anticoagulation per Cardiology -Right occipital infarct, Chronic in nature but new diagnosis, with AFib, anticoagulation is warranted for stroke prevention -CAD (coronary artery disease) s/p Stented coronary artery -ICD (implantable cardioverter-defibrillator) in place -HTN (hypertension): low salt diet, antihypertensives -H/O cardiomyopathy DVT ppx: Eliquis History Interval history: Patient was seen and examined. Follow-up on current diagnosis of AMS. No overnight events reported to me. Patient is confused, [facility] services unable to be used due to Dementia, but son Norman at bedside help with Interpretration, patient still not at baseline. Imaging, nursing note, chart, labs and old chart reviewed. Hospitalist Physical - Physical exam Narrative exam: Gen: thin frail, chronically disable appearing, NAD, Awake, Alert, confuse HEENT: NCAT, EOMI, PERRL, OP Clear Neck: supple, no adenopathy, no thyromegaly, no JVD CVS/Heart: irregular irregular, normal S1S2, pulses present bilaterally Chest/Lungs: CTA B, Symmetrical chest expansion, good air entry bilaterally GI/Abdomen: soft, NTND, good bowel sounds, no guarding or rebound /Bladder: no suprapubic tenderness, no CVA or paraspinal tenderness Extermity/Skin: no c/c/e, no obvious rash MSK: FROM x 4 Neuro: CN 2-12 grossly intact, no new focal deficits Psych: calm but confused - Constitutional Vitals: Temp Pulse Resp BP Pulse Ox 98.0 F 91 H 20 138/91 99 07/04/19 04:37 07/04/19 04:37 07/04/19 04:37 07/04/19 04:37 07/04/19 04:37 General appearance: Present: no acute distress Results - Labs CBC & Chem 7: 07/02/19 20:04 07/02/19 20:04 Labs: Laboratory Last Values WBC 8.7 K/mm3 (4.5-11.0) 07/02/19 20:04 RBC 3.46 M/mm3 (3.65-5.03) L 07/02/19 20:04 Hgb 11.3 gm/dl (11.8-15.2) L 07/02/19 20:04 Hct 32.7 % (35.5-45.6) L 07/02/19 20:04 MCV 95 fl (84-94) H 07/02/19 20:04 MCH 33 pg (28-32) H 07/02/19 20:04 MCHC 35 % (32-34) H 07/02/19 20:04 RDW 15.6 % (13.2-15.2) H 07/02/19 20:04 Plt Count 160 K/mm3 (140-440) 07/02/19 20:04 Lymph % (Auto) 3.6 % (13.4-35.0) L 07/02/19 20:04 Craig % (Auto) 5.8 % (0.0-7.3) 07/02/19 20:04 Eos % (Auto) 1.2 % (0.0-4.3) 07/02/19 20:04 Baso % (Auto) 0.3 % (0.0-1.8) 07/02/19 20:04 Lymph # 0.3 K/mm3 (1.2-5.4) L 07/02/19 20:04 Craig # 0.5 K/mm3 (0.0-0.8) 07/02/19 20:04 Eos # 0.1 K/mm3 (0.0-0.4) 07/02/19 20:04 Baso # 0.0 K/mm3 (0.0-0.1) 07/02/19 20:04 Seg Neutrophils % 89.1 % (40.0-70.0) H 07/02/19 20:04 Seg Neutrophils # 7.8 K/mm3 (1.8-7.7) H 07/02/19 20:04 Sodium 133 mmol/L (137-145) L 07/02/19 20:04 Potassium 3.3 mmol/L (3.6-5.0) L 07/02/19 20:04 Chloride 86.0 mmol/L (98-107) L 07/02/19 20:04 Carbon Dioxide 30 mmol/L (22-30) 07/02/19 20:04 Anion Gap 20 mmol/L 07/02/19 20:04 BUN 19 mg/dL (9-20) 07/02/19 20:04 Creatinine 5.0 mg/dL (0.8-1.5) H 07/02/19 20:04 Estimated GFR 11 ml/min 07/02/19 20:04 BUN/Creatinine Ratio 4 % 07/02/19 20:04 Glucose 185 mg/dL (75-100) H 07/02/19 20:04 POC Glucose 102 (70-105) 07/04/19 08:15 Calcium 8.4 mg/dL (8.4-10.2) 07/02/19 20:04 Magnesium 2.10 mg/dL (1.7-2.3) 07/02/19 20:29 Total Creatine Kinase 696 units/L (55-170) H 07/03/19 12:12 CK-MB (CK-2) 5.2 ng/mL (0.0-4.0) H 07/03/19 12:12 CK-MB (CK-2) Rel Index 0.7 (0-4) 07/03/19 12:12 Troponin T 0.096 ng/mL (0.00-0.029) H 07/03/19 12:12 Triglycerides 124 mg/dL (2-149) 07/02/19 20:29 Cholesterol 266 mg/dL (50-199) H 07/02/19 20:29 LDL Cholesterol Direct 208 mg/dL (50-130) H 07/02/19 20:29 HDL Cholesterol 49 mg/dL (40-59) 07/02/19 20:29 Cholesterol/HDL Ratio 5.42 % 07/02/19 20:29 Hepatitis A IgM Ab Non-reactive (NonReactive) 07/03/19 10:14 Hep Bs Antigen Non-reactive (Negative) 07/03/19 10:14 Hep B Core IgM Ab Non-reactive (NonReactive) 07/03/19 10:14 Hepatitis C Antibody Non-reactive (NonReactive) 07/03/19 10:14 Active Medications - Current Medications Current Medications: Generic Name Dose Route Start Last Admin Trade Name Freq PRN Reason Stop Dose Admin Acetaminophen 650 mg 07/03/19 01:42 Tylenol PO Q4H PRN Fever >101 Amlodipine Besylate 5 mg 07/03/19 10:00 07/04/19 09:06 Norvasc PO 5 mg QDAY PARI Administration Calcium Acetate 667 mg 07/03/19 08:00 07/04/19 09:07 Phoslo PO 667 mg TIDWM PARI Administration Carvedilol 6.25 mg 07/04/19 22:00 Coreg PO BID PARI Cinacalcet 30 mg 07/03/19 10:00 07/04/19 09:06 Sensipar PO 30 mg QDAY PARI Administration Sodium Chloride 100 mls @ 999 mls/hr 07/03/19 10:26 Nacl 0.9% IV SHARON PRN Hypotension Multivit/Ca Carb/B Cmplx/FA/Prenat 1 cap 07/03/19 10:00 07/04/19 09:06 Renal Caps PO 1 cap DAILY PARI Administration Pantoprazole Sodium 40 mg 07/03/19 10:00 07/04/19 09:07 Protonix PO 40 mg DAILY PARI Administration Nutrition/Malnutrition Assess - Dietary Evaluation Nutrition/Malnutrition Findings: Nutrition Notes Start: 07/03/19 11:12 Freq: Status: Active Protocol: Document 07/03/19 11:12 DUANE (Rec: 07/03/19 11:29 DUANE [id number]) Co-Sign 07/03/19 11:12 Nutrition Notes Need for Assessment generated from: participant administrator Initial or Follow up Brief Note Current Diagnosis Hypertension Other Pertinent Diagnosis ESRD on HD (M,W,F) Current Diet Renal Subjective/Other Information Screen for chewing difficulty. Pt son reports pt has dentures in hosiplital and has no issues eating. Burn Absent Trauma Absent Nutrition Intervention Follow-Up By: 07/05/19 Additional Comments FU for intakes
[2019-07-04] MEDS ORDERED: SODIUM CHLORIDE*PRIMING MACHINE ONLY FOR DIALYSIS MC ONE (16:16)
--- NOTE | 2019-07-04 19:40 | Electroencephalogram Report ---
Electroencephalogram EEG Date of exam: 07/04/19 History: Patient is 73-year-old man with a history of hypertension, ESRD on HD, atrial fibrillation, history of pacemaker and AICD placement, history of dementia, who presents with convulsions and altered mental status during dialysis. Impression: 1. Generalized slowing. 2. No seizures or epileptiform discharges. 3. Significant muscle artifact noted as patient was intermittently clenching teeth. Description: Electrodes were applied using paste technique and positions dictated by the international 1020 system replacement. Recording montage included both referential and bipolar derivations. In addition to EKG data EKG and eye movements were recorded. At the onset of this recording, the patient is lying supine. In the background renotified to 7 Hz theta activity then hasn't amplitude ranging 20-30 V. Additional low voltage beta activity occurs symmetrically at the anterior head regions bilaterally. There are no asymmetries in amplitude and frequency between hemispheres. Significant muscle artifact noted as patient was intermittently clenching teeth. Photic stimulation was not performed. Hyperventilation was not performed. Throughout, the recording there are no epileptiform abnormalities, focal or lateralizing features, or significant interhemispheric findings. Interpretation: The routine EEG performed during wakefulness, drowsiness, and sleep, is abnormal secondary to above findings and is consistent with bihemispheric dysfunction and encephalopathy. The above-described findings of diffuse slowing is etiologically nonspecific and similar findings have been reported in cases of toxic, metabolic, hypoxic ischemic, infectious, medication, sleep deprivation, dementia, postictal state, and other causes a diffuse and multifocal encephalopathy.
[2019-07-04] MEDS: APIXABAN 5 MG TAB PO SCH (21:58)
[2019-07-04] MEDS: carvediloL 6.25 MG TAB PO SCH (21:58)
[2019-07-05] MEDS: CALCIUM ACETATE 667 MG CAP PO SCH ×2 (08:45→13:05)
--- NOTE | 2019-07-05 10:35 | Progress Note ---
Assessment and Plan Elevated troponin in this gentleman is rather nonspecific and may be related to his ESRD. Continue present cardiac management, including coreg and eliquis. Nothing further to add from cardiac perspective. Will sign off. Recommend follow up in our office with Dr. Millard within 1-2 weeks of discharge ([phone]). The patient has been seen in conjunction with Dr. Sandoval who agrees with the assessment and plan of care. - Patient Problems (1) Altered mental status Current Visit: Yes Status: Acute Qualifiers: Qualified Code(s): R41.82 - Altered mental status, unspecified (2) Elevated troponin Current Visit: Yes Status: Chronic (3) Permanent atrial fibrillation with RVR Current Visit: Yes Status: Acute (4) CAD (coronary artery disease) Current Visit: Yes Status: Chronic Qualifiers: Coronary Disease-Associated Artery/Lesion type: [place] artery (5) Stented coronary artery Current Visit: Yes Status: Chronic (6) ICD (implantable cardioverter-defibrillator) in place Current Visit: Yes Status: Chronic (7) HTN (hypertension) Current Visit: Yes Status: Chronic Qualifiers: Hypertension type: essential hypertension Qualified Code(s): I10 - Essential (primary) hypertension (8) H/O cardiomyopathy Current Visit: Yes Status: Chronic (9) ESRD (end stage renal disease) Current Visit: Yes Status: Chronic (10) H/O CVA Current Visit: Yes Status: Chronic Subjective Date of service: 07/05/19 Principal diagnosis: ESRD Interval history: pt resting in bed, no current complaints. not wearing dinkey dispatcher. son at bedside. Objective Last Vital Signs Temp 98.3 F 07/05/19 05:21 Pulse 84 07/05/19 05:21 Resp 18 07/05/19 05:21 BP 129/86 07/05/19 05:21 Pulse Ox 98 07/05/19 05:21 - Physical Examination General: No Apparent Distress HEENT: Positive: EOMI, Normocephaly, Mucus Membranes Moist Neck: Positive: neck supple, trachea midline Cardiac: Positive: Reg Rate and Rhythm, S1/S2 Lungs: Positive: Decreased Breath Sounds Neuro: Positive: Grossly Intact Abdomen: Positive: Soft, Active Bowel Sounds. Negative: Tender Skin: Positive: Clear. Negative: Rash Musculoskeletal: Normal Range of Motion Extremities: Present: normal. Absent: edema - Imaging and Cardiology EKG: image reviewed Repolarization changes or abnormalities: ST or T wave suggestive of ischemia
[2019-07-05] MEDS: CINACALCET 30 MG TAB PO SCH (10:47)
[2019-07-05] MEDS: PANTOPRAZOLE 40 MG TAB PO SCH (10:47)
[2019-07-05] MEDS: carvediloL 6.25 MG TAB PO SCH (10:47)
[2019-07-05] MEDS: amLODIPine 5 MG TAB PO SCH (10:47)
[2019-07-05] MEDS: FOLIC ACID/VIT B COMP W-C 1 MG (RENAL CAPS) PO SCH (10:47)
[2019-07-05] MEDS: APIXABAN 5 MG TAB PO SCH (10:48)
--- NOTE | 2019-07-05 10:52 | Progress Note ---
Assessment and Plan ESRD on HD Altered mental status Anemia in CKD Hypertension - no incitation for HD today - Renally dose medications - Strict I&O - Obtain daily weight - Renal diet - Will assess dialysis needs daily Miguel Angel Agustin MD [phone] Subjective Date of service: 07/05/19 Principal diagnosis: ESRD Interval history: follows simple commands, appears comfortable Objective - Vital Signs Vital signs: Vital Signs - 12hr 07/05/19 07/05/19 00:14 05:21 Temperature 97.5 F L 98.3 F Pulse Rate 88 84 Respiratory 18 18 Rate Blood Pressure 139/72 129/86 O2 Sat by Pulse 100 98 Oximetry - General Appearance General appearance: well-developed, well-nourished EENT: ATNC, PERRL Neck: no JVD, no carotid bruit Respiratory: Present: Clear to Ascultation. Absent: Rales, Ronchi Cardiology: regular, S1S2 Gastrointestinal: normoactive bowel sounds, no hypoactive bowel sounds, no absent bowel sounds Integumentary: no rash, warm and dry Neurologic: no focal deficit, no asterixis, alert and oriented x3 Musculoskeletal: deferred, other (no edema in BLE) Psychiatric: mood/affect appropriate, cooperative - Lab 07/02/19 20:04 07/02/19 20:04 Most recent lab results Calcium 8.4 mg/dL (8.4-10.2) 07/02/19 20:04 Magnesium 2.10 mg/dL (1.7-2.3) 07/02/19 20:29 Medications & Allergies - Medications Allergies/Adverse Reactions: Allergies cefazolin sodium [From Anc] Adverse Reaction (Severe, Verified 04/20/17 17:25) Shortness of Breath STOPPED BREATHING Home Medications: Home Medications Medication Instructions Recorded Confirmed Last Taken Type B Complex 11/Folic/C/Biot/Zinc 1 each PO DAILY 06/13/13 07/02/19 09/06/18 History [Dialyvite with Zinc Tablet] Esomeprazole Magnesium [NexIUM] 40 mg PO DAILY 06/13/13 07/02/19 09/06/18 History 40 mg Calcium Acetate [Phoslo] 667 mg PO TIDWM 09/07/18 07/02/19 09/06/18 History Carvedilol [Coreg] 3.125 mg PO BID #60 tablet 09/09/18 07/02/19 Unknown Rx Amlodipine Besylate [Norvasc] 5 mg PO QDAY 07/02/19 07/02/19 Unknown History Cinacalcet [Sensipar] 30 mg PO QDAY 07/02/19 07/02/19 Unknown History Active Medications: Generic Name Dose Route Start Last Admin Trade Name Cassandra PRN Reason Stop Dose Admin Acetaminophen 650 mg 07/03/19 01:42 Tylenol PO Q4H PRN Fever >101 Amlodipine Besylate 5 mg 07/03/19 10:00 07/04/19 09:06 Norvasc PO 5 mg QDAY PARI Administration Apixaban 2.5 mg 07/04/19 22:00 07/04/19 21:58 Eliquis PO 2.5 mg Q12HR PARI Administration Protocol Calcium Acetate 667 mg 07/03/19 08:00 07/04/19 17:37 Phoslo PO 667 mg TIDWM PARI Administration Carvedilol 6.25 mg 07/04/19 22:00 07/04/19 21:58 Coreg PO 6.25 mg BID PARI Administration Cinacalcet 30 mg 07/03/19 10:00 07/04/19 09:06 Sensipar PO 30 mg QDAY PARI Administration Sodium Chloride 100 mls @ 999 mls/hr 07/03/19 10:26 Nacl 0.9% IV SHARON PRN Hypotension Multivit/Ca Carb/B Cmplx/FA/Prenat 1 cap 07/03/19 10:00 07/04/19 09:06 Renal Caps PO 1 cap DAILY PARI Administration Pantoprazole Sodium 40 mg 07/03/19 10:00 07/04/19 09:07 Protonix PO 40 mg DAILY PARI Administration
--- NOTE | 2019-07-05 13:04 | Discharge Summary ---
Providers - Providers Date of Admission: 07/03/19 16:26 Date of discharge: 07/05/19 Attending physician: PENELOPE SEARS 07/03/19 06:00 Consult to Physician [CONS] Routine Comment: Consulting Provider: AROLDO SANTAMARIA Physician Instructions: Reason For Exam: ESRD ON DIALYSIS Physical Therapy Evaluation and Treat [CONS] Routine Comment: Reason For Exam: WEAKNESS 07/03/19 08:56 Consult to Physician [CONS] Routine Comment: Consulting Provider: DEMETRICE PRUETT Physician Instructions: Reason For Exam: AMS, evaluate for CVA 07/03/19 16:24 Consult to Physician [CONS] Routine Comment: Consulting Provider: JOSE FINNEGAN Physician Instructions: Reason For Exam: AFib, with icd/ppM? ?A/C, patient known to you Primary care physician: ETHANOL OPERATOR Hospitalization Condition: Stable Hospital course: Patient is a 73 yo man [place] with a history of ESRD on HD MWF, CAD, status post PCI, Atrial fibrillation, cardiomyopathy, pacemaker/AICD placement, hypertension, GERD and Advance Dementia who presented with AMS after HD. It is possible that he has had a seizure. After returning home from hemodialysis, the patient's son, Norman, observed abnormal movement with tonic-clonic activity which lasted for about 10 minutes followed by a period of unresponsiveness of about 2 hours. The EMS was called and brought patient to the emergency department. Brain CT scan revealed interval development of a right occipital infarct since that of August 2018. However, he was not felt to have any acute findings. Troponin level is mildly elevated. However, he has end-stage renal disease. Discharge Diagnoses: -Acute metabolic encephalopathy related to seizures most likely -Suspected Seizures Disorder: EEG reviewed and d/w Neurologist, will start on Keppra 500mg bid with extra 500mg of Keppra after Hemodialysis MWF -ESRD on HD: Nephrology following, needing HD -Permanent atrial fibrillation with RVR: Started anticoagulation per Cardiology, Eliquis -Right occipital infarct, Chronic in nature but just discovered, when he had a stroke was not acutely or subacutely, with AFib, anticoagulation is warranted for stroke prevention -CAD (coronary artery disease) s/p Stented coronary artery -ICD (implantable cardioverter-defibrillator) in place -HTN (hypertension): low salt diet, antihypertensives -H/O cardiomyopathy DVT ppx: Eliquis Disposition: DC-01 TO HOME OR SELFCARE Time spent for discharge: 36 minutes Core Measure Documentation - Palliative Care Palliative Care/ Comfort Measures: Not Applicable - Core Measures Any of the following diagnoses?: none - VTE Discharge Requirements Deep Vein Thrombosis/Pulmonary Embolism Present on Admission: No Has pt received <5 days of overlap therapy or INR<2.0: No Anticoagulant overlap therapy prescribed at discharge: No Contraindication No Overlap Therapy order at DC: Not Indicated Exam - Physical Exam Narrative exam: Gen: thin frail, chronically disable appearing, NAD, Awake, Alert, confuse HEENT: NCAT, EOMI, PERRL, OP Clear Neck: supple, no adenopathy, no thyromegaly, no JVD CVS/Heart: irregular irregular, normal S1S2, pulses present bilaterally Chest/Lungs: CTA B, Symmetrical chest expansion, good air entry bilaterally GI/Abdomen: soft, NTND, good bowel sounds, no guarding or rebound /Bladder: no suprapubic tenderness, no CVA or paraspinal tenderness Extermity/Skin: no c/c/e, no obvious rash MSK: FROM x 4 Neuro: CN 2-12 grossly intact, no new focal deficits Psych: calm but confused - Constitutional Vitals: Temp Pulse Resp BP Pulse Ox 98.3 F 74 18 131/73 98 07/05/19 05:21 07/05/19 11:00 07/05/19 05:21 07/05/19 10:47 07/05/19 05:21 Plan Activity: other (no strenous activity unless cleared by Valve Machine Operator) Special Instructions: record daily weights Additional Instructions: Take an additional 500mg Keppra after Hemodialysis on MWF only, so you would take 3 tablets of keppra 500mg for MWF Follow up with: PRIMARY CARE, [Primary Care Provider] - 3-5 Days JOSE FINNEGAN MD [Staff Physician] - 7 Days AROLDO SANTAMARIA MD [Staff Physician] - 7 Days FLORENCIA BARNETT MD [Referring] - 7 Days Prescriptions: Carvedilol [Coreg] 6.25 mg PO BID #60 tablet Apixaban [Eliquis] 2.5 mg PO BID #60 tablet levETIRAcetam [Keppra TAB] 500 mg PO BID #60 tablet levETIRAcetam [Keppra TAB] 500 mg PO 3XW #12 tablet
--- NOTE | 2019-07-05 13:14 | Progress Note ---
Assessment and Plan Patient is 73-year-old man with a history of hypertension, ESRD on HD, atrial fibrillation, history of pacemaker and AICD placement, history of dementia, who presents with convulsions and altered mental status during dialysis. According the patient's clinical findings, it is possible that he has had a seizure. In support of this differential diagnosis, the patient was noted to have convulsions, confusion and unresponsiveness, and was noted to be tired after the event. Patient also has evidence of a chronic right occipital infarct, which is a new finding since previous CT scan done August 2018. Plan: 1. Altered mental status: - Possible seizure vs. metabolic encephalopathy - Patient has baseline dementia. Mental status returned to baseline today. - EEG: generalized slowing. No seizures or epileptiform activity. - Repeat CT head did not show any evidence of acute infarct. - Unable to check UA, as family states patient does not produce urine. - Patient being followed by cardiology. Started on Eliquis for Afib. Eliquis 2.5mg BID, dose is based on patient's age, renal function, and weight. - CT head showed remote stroke, which is new since previous CT head from August 2018. - If patient has a seizure, recommend 1mg ativan stat. If seizure does not resolve within 2 minutes of first dose, can repeat X1. Please page primary team and neurology if patient has a seizure. - Will start patient on Keppra 500mg BID, with extra 500mg to be given after each hemodialysis. Decision to start keppra based upon description of event, which was likely a seizure, and fact that patient has encephalomalacia from previous stroke, which increases his risk of seizures. Family was in agreement with starting Keppra, with discussion regarding risks/benefits/side effects. - Recommend Hemodialysis to be done slow-flow, to reduce risk of further seizures due to rapid shift in fluids/electrolytes during HD. - Continue to investigate/correct metabolic abnormalities per primary team - Will sign off, as investigations are complete and treatment plan is in place. Please call with any questions. Thank you for allowing me to take part in the care of this patient. Timothy An MD Neurology Subjective Date of service: 07/05/19 Principal diagnosis: ESRD Interval history: No acute events overnight. Mental status improved today, and patient is back at baseline of mental status. Objective - Exam Narrative Exam: Patient is awake, alert, oriented only to self, follows two-step commands. Pupils equal, round, reactive to light. Visual tavares decreased on the left to threat. No facial weakness noted. 5/5 strength in all extremities. 2+ reflexes throughout. Bilaterally intact to LT. Bilaterally intact to FTN and HTS. - Vital Sign Vital Signs - 12hr 07/05/19 07/05/19 07/05/19 05:21 10:47 11:00 Temperature 98.3 F Pulse Rate 84 Pulse Rate [ 74 From Monitor] Respiratory 18 Rate Blood Pressure 129/86 131/73 O2 Sat by Pulse 98 Oximetry - General Apperance Constitutional: comfortable - EENT EENT: ATNC, PERRL, mucous membranes moist, hearing intact - Respiratory Respiratory: lungs clear, normal breath sounds - Cardiovascular Cardiovascular: regular rate, normal S1, normal S2 Extremities: no clubbing, cyanosis, no inflammation - Gastrointestinal Gastrointestinal: normoactive bowel sounds, soft, non-tender - Integumentary Integumentary: normal - Musculoskeletal Musculoskeletal: no fluid collection, no pain - Psychiatric Psychiatric: mood/affect appropriate - Laboratory Findings CBC and BMP: 07/02/19 20:04 07/02/19 20:04 Abnormal Lab Findings: Abnormal Labs 07/02/19 07/02/19 07/02/19 20:04 20:04 20:29 RBC 3.46 L Hgb 11.3 L Hct 32.7 L MCV 95 H MCH 33 H MCHC 35 H RDW 15.6 H Lymph % (Auto) 3.6 L Lymph # 0.3 L Seg Neutrophils % 89.1 H Seg Neutrophils # 7.8 H Sodium 133 L Potassium 3.3 L Chloride 86.0 L Creatinine 5.0 H Glucose 185 H POC Glucose Total Creatine Kinase CK-MB (CK-2) Troponin T 0.081 H Cholesterol 266 H LDL Cholesterol Direct 208 H 07/02/19 07/03/19 07/03/19 22:22 06:18 12:12 RBC Hgb Hct MCV MCH MCHC RDW Lymph % (Auto) Lymph # Seg Neutrophils % Seg Neutrophils # Sodium Potassium Chloride Creatinine Glucose POC Glucose Total Creatine Kinase 456 H 696 H CK-MB (CK-2) 5.5 H 5.2 H Troponin T 0.084 H 0.095 H 0.096 H Cholesterol LDL Cholesterol Direct 07/03/19 21:10 RBC Hgb Hct MCV MCH MCHC RDW Lymph % (Auto) Lymph # Seg Neutrophils % Seg Neutrophils # Sodium Potassium Chloride Creatinine Glucose POC Glucose 106 H Total Creatine Kinase CK-MB (CK-2) Troponin T Cholesterol LDL Cholesterol Direct
[2019-07-05 13:26] VITALS: BP 128/68
[2019-07-05] MEDS ORDERED: APIXABAN 2.5 MG TAB PO SCH (22:00)
[2019-07-05] MEDS ORDERED: levETIRAcetam 500 MG TAB PO SCH (22:00)
[2019-07-06] MEDS ORDERED: levETIRAcetam 500 MG TAB PO ONE (00:01)
== END 2019-07-05 14:58 | disposition home or self-care (01) | DRG 100 ==
LOC: ED 18:58 → 3A 07-03 02:35 → OBSVTOIN 07-03 16:26
PROVIDERS: ADMIT Internal Medicine; ATTEND Internal Medicine
PROC: 5A1D70Z Performance of Urinary Filtration, Intermittent, Less than 6 Hours Per Day (ICD-10-PCS; principal; 2019-07-04)
DX: G40.909 Epilepsy, unspecified, not intractable, without status epilepticus (principal); G93.41 Metabolic encephalopathy; N18.6 End stage renal disease; I12.0 Hypertensive chronic kidney disease with stage 5 chronic kidney disease or end stage renal disease; I48.21 Permanent atrial fibrillation; I42.9 Cardiomyopathy, unspecified; E87.6 Hypokalemia; I25.10 Atherosclerotic heart disease of native coronary artery without angina pectoris; F03.90 Unspecified dementia, unspecified severity, without behavioral disturbance, psychotic disturbance, mood disturbance, and anxiety; D63.1 Anemia in chronic kidney disease; K21.9 Gastro-esophageal reflux disease without esophagitis; Z79.01 Long term (current) use of anticoagulants; Z99.2 Dependence on renal dialysis; Z95.810 Presence of automatic (implantable) cardiac defibrillator; Z95.5 Presence of coronary angioplasty implant and graft; Z86.73 Personal history of transient ischemic attack (TIA), and cerebral infarction without residual deficits; Z79.899 Other long term (current) drug therapy
CPT/HCPCS: 36415; 70450; 71045; 80048; 80061; 80074; 82550; 82553; 82962; 83735; 84484; 85025; 93005; 93010; 95819; 96374; G0378; J3480; J7030